=== PATIENT | female | born 1965 | race Caucasian/White ===

== ENCOUNTER 2017-02-08 06:45 | Day surgery (SDC) | payer OTHER ==
[2017-02-05 16:08] VITALS: BMI 21.9
--- NOTE | 2017-02-08 07:50 | HP ---
Admitting History and Physical - Primary Care Physician PCP: Stacia Zuñiga - Admission History of Present Illness: patient is a 51 y/o female with a past medical history of depression and hypelipidemia. She presents for ect, she has received ect in the past 2012 and 2014. patient reports she has is restarting ect because her current medication regimen is ineffective. Patient denies any recent hospitalizations or illnesses. She denies any past suicide attempts. Patient denies any suicidal or homicidal ideation, visual or auditory hallucinations. 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 History of Recent Travel: No Home Medications - Allergies Allergies/Adverse Reactions: Allergies Allergy/AdvReac Type Severity Reaction Status Date / Time No Known Allergies Allergy Verified 02/05/17 15:52 - Home Medications Home Medications: Ambulatory Orders Atorvastatin Calcium [Lipitor] 10 mg PO DAILY 02/05/17 Brexpiprazole [Rexulti] 2 mg PO DAILY 02/05/17 Lamotrigine [Lamictal] 200 mg PO DAILY 02/05/17 Multivitamins [Tab-A-Vit -] 1 tab PO DAILY 02/05/17 Vortioxetine Hydrobromide [Trintellix] 30 mg PO DAILY 02/05/17 Zolpidem Tartrate [Ambien] 10 mg PO HS 02/05/17 Loryna 3 mg-0.02 mg Tablet 1 tab PO DAILY 02/08/17 Family Disease History - Family Disease History Family Disease History: Other: Father (depression/anxiety, HLD) Review of Systems - Review of Systems Constitutional: reports: No Symptoms Eyes: reports: No Symptoms HENT: reports: No Symptoms Neck: reports: No Symptoms Cardiovascular: reports: No Symptoms Respiratory: reports: No Symptoms Gastrointestinal: reports: No Symptoms Genitourinary: reports: No Symptoms Musculoskeletal: reports: No Symptoms Integumentary: reports: No Symptoms Neurological: reports: No Symptoms Endocrine: reports: No Symptoms Hematology/Lymphatic: reports: No Symptoms Psychiatric: reports: Depression Physical Examination Constitutional: Yes: Well Nourished, No Distress, Calm, Thin Eyes: Yes: WNL, Conjunctiva Clear, EOM Intact HENT: Yes: WNL, Atraumatic, Normocephalic Neck: Yes: WNL, Supple, Trachea Midline Cardiovascular: Yes: WNL, Regular Rate and Rhythm, S1, S2 Respiratory: Yes: WNL, Regular, CTA Bilaterally Gastrointestinal: Yes: WNL, Normal Bowel Sounds, Soft ...Rectal Exam: Yes: Deferred Renal/: Yes: WNL Breast(s): Yes: WNL Musculoskeletal: Yes: WNL Extremities: Yes: WNL Edema: No Peripheral Pulses WNL: Yes Peripheral Pulses: Left Radial: 4+, Right Radial: 4+, Left Doralis Pedis: 3+, Right Dorsalis Pedis: 3+, Left Femoral: 3+, Right Femoral: 3+ Integumentary: Yes: WNL Neurological: Yes: WNL, Alert, Oriented ...Motor Strength: WNL Psychiatric: Yes: WNL, Alert Labs: CBC WBC 5.9 K/mm3 (4.0-10.8) 02/08/17 07:45 RBC 4.09 M/mm3 (3.60-5.2) 02/08/17 07:45 Hgb 12.4 GM/dl (10.7-15.3) 02/08/17 07:45 Hct 36.6 % (32.4-45.2) 02/08/17 07:45 MCV 89.5 fl (80-96) 02/08/17 07:45 MCH 30.2 pg (25.7-33.7) 02/08/17 07:45 MCHC 33.8 g/dl (32.0-36.0) 02/08/17 07:45 RDW 12.6 % (11.6-15.6) 02/08/17 07:45 Plt Count 310 K/MM3 (134-434) 02/08/17 07:45 MPV 6.9 fl (7.5-11.1) L 02/08/17 07:45 Neutrophils % 61.3 % (42.8-82.8) 02/08/17 07:45 Lymphocytes % 29.5 % (8-40) 02/08/17 07:45 Monocytes % 7.0 % (3.8-10.2) 02/08/17 07:45 Eosinophils % 1.5 % (0-4.5) 02/08/17 07:45 Basophils % 0.7 % (0-2.0) 02/08/17 07:45 Imaging - Results EKG: Image Reviewed, Other (sinus bradycardia no ischemic changes) Problem List - Problems (1) Chronic depression Code(s): F32.9 - MAJOR DEPRESSIVE DISORDER, SINGLE EPISODE, UNSPECIFIED Assessment/Plan pt is a 51 y/o female that presents for ect, she has received ect in the past and denies any adverse reaction to anesthesia labs and ekg reviewed pt is low risk for procedure informed consent, risks/benefits to be obtained by Dr Chandler
[2017-02-08 08:44] LABS: BASOPHIL 0.7 % (0-2.0); EOSINOPHIL 1.5 % (0-4.5); MCH 30.2 pg (25.7-33.7); MCHC 33.8 g/dl (32.0-36.0); MEAN CELL VOLUME 89.5 fl (80-96); MEAN PLT VOLUME 6.9 fl (7.5-11.1); NEUTROPHILS 61.3 % (42.8-82.8); PLATELET COUNT 310 K/MM3 (134-434); RDW 12.6 % (11.6-15.6); WHITE BLOOD COUNT 5.9 K/mm3 (4.0-10.8)
[2017-02-08] MEDS ORDERED: KETAMINE HCL 500 MG/10 ML VIAL ONE (08:55)
[2017-02-08 08:57] LABS: ALBUMIN 3.6 g/dl (3.5-5.0); ALK PHOS 38 U/L (32-92); ANION GAP 4 (8-16); BILIRUBIN,TOTAL 0.5 mg/dl (0.2-1.0); CALCIUM 8.9 mg/dl (8.4-10.2); CO2 27 mmol/L (22-28); CREATININE 0.8 mg/dl (0.6-1.3); GLUCOSE,RANDOM 88 mg/dl (74-106); SGOT/AST 25 U/L (10-42); SGPT/ALT 18 U/L (10-40); TOT PROT 6.3 g/dl (6.4-8.3)
[2017-02-08 10:47] VITALS: TEMP 98.2
[2017-02-08 10:48] VITALS: BP 102/72; PULSE 60
--- NOTE | 2017-02-09 09:23 | EKG ---
Test Reason : Blood Pressure : / mmHG Vent. Rate : 052 BPM Atrial Rate : 052 BPM P-R Int : 106 ms QRS Dur : 080 ms QT Int : 462 ms P-R-T Axes : 046 014 032 degrees QTc Int : 429 ms SINUS BRADYCARDIA WITH SHORT [place] NO PREVIOUS ECGS AVAILABLE Confirmed by MD ANTHONY, JANNIE ([id number]) on 02/09/2017 9:23:21 AM Referred By: Partha Chandler Confirmed By:JANNIE CRUZ MD
== END 2017-02-08 10:40 | disposition home or self-care (01) ==
LOC: FECT 06:45
PROVIDERS: ATTEND Psychiatry & Neurology Psychiatry
PROC: GZB4ZZZ Other Electroconvulsive Therapy (ICD-10-PCS; principal; 2017-02-08 08:15)
DX: F33.2 Major depressive disorder, recurrent severe without psychotic features (principal)
CPT/HCPCS: 36415; 80053; 84703; 85025; 90870; 93005; 94760

== ENCOUNTER 2017-02-10 05:47 | Day surgery (SDC) | payer OTHER ==
[2017-02-08 13:03] VITALS: BMI 21.9
[2017-02-10] MEDS ORDERED: LACTATED RINGERS SOLUTION 1,000 ML IV SCH (07:15)
[2017-02-10] MEDS ORDERED: KETAMINE HCL 500 MG/10 ML VIAL ONE (08:05)
[2017-02-10 09:07] VITALS: TEMP 98.1
[2017-02-10 09:32] VITALS: BP 124/66; PULSE 57
== END 2017-02-10 09:54 | disposition home or self-care (01) ==
LOC: FECT 05:47
PROVIDERS: ATTEND Psychiatry & Neurology Psychiatry
PROC: GZB4ZZZ Other Electroconvulsive Therapy (ICD-10-PCS; principal; 2017-02-10 08:15)
DX: F33.2 Major depressive disorder, recurrent severe without psychotic features (principal)
CPT/HCPCS: 90870; 94760

== ENCOUNTER 2017-02-12 05:45 | Day surgery (SDC) | payer OTHER ==
[2017-02-10 09:36] VITALS: BMI 21.9
[2017-02-12 06:44] VITALS: TEMP 97.8
[2017-02-12] MEDS ORDERED: KETAMINE HCL 500 MG/10 ML VIAL ONE (07:08)
[2017-02-12] MEDS ORDERED: KETOROLAC TROMETHAMINE 30 MG/1 ML VIAL ONE (07:09)
[2017-02-12] MEDS ORDERED: ACETAMINOPHEN 325 MG TABLET (FP) PO PRN (08:03)
[2017-02-12] MEDS ORDERED: ONDANSETRON 4 MG/2 ML VIAL IVPUSH PRN (08:03)
[2017-02-12] MEDS ORDERED: LACTATED RINGERS SOLUTION 1,000 ML IV SCH (08:15)
[2017-02-12 08:43] VITALS: BP 121/71; PULSE 61
== END 2017-02-12 08:40 | disposition home or self-care (01) ==
LOC: FECT 05:45
PROVIDERS: ATTEND Psychiatry & Neurology Psychiatry
PROC: GZB4ZZZ Other Electroconvulsive Therapy (ICD-10-PCS; principal; 2017-02-12 08:00)
DX: F33.2 Major depressive disorder, recurrent severe without psychotic features (principal)
CPT/HCPCS: 84703; 90870; 94760

== ENCOUNTER 2017-02-15 05:41 | Day surgery (SDC) | payer OTHER ==
[2017-02-10 09:39] VITALS: BMI 21.9
[2017-02-15 06:23] VITALS: TEMP 98
[2017-02-15] MEDS ORDERED: KETAMINE HCL 500 MG/10 ML VIAL ONE (07:10)
[2017-02-15] MEDS ORDERED: ONDANSETRON 4 MG/2 ML VIAL IVPUSH PRN (07:32)
[2017-02-15] MEDS ORDERED: oxyCODONE HCL 5 MG TABLET PO PRN (07:32)
[2017-02-15] MEDS ORDERED: LACTATED RINGERS SOLUTION 1,000 ML IV SCH (07:45)
[2017-02-15 08:28] VITALS: BP 129/73; PULSE 55
== END 2017-02-15 08:30 | disposition home or self-care (01) ==
LOC: FECT 05:41
PROVIDERS: ATTEND Psychiatry & Neurology Psychiatry
PROC: GZB4ZZZ Other Electroconvulsive Therapy (ICD-10-PCS; principal; 2017-02-15 07:30)
DX: F33.2 Major depressive disorder, recurrent severe without psychotic features (principal)
CPT/HCPCS: 90870; 94760

== ENCOUNTER 2017-02-17 05:39 | Day surgery (SDC) | payer OTHER ==
[2017-02-11 12:46] VITALS: BMI 21.9
[2017-02-17] MEDS ORDERED: KETAMINE HCL 500 MG/10 ML VIAL ONE (07:23)
[2017-02-17 08:35] VITALS: PULSE 53; TEMP 97.9
[2017-02-17 09:06] VITALS: BP 134/80
== END 2017-02-17 09:08 | disposition home or self-care (01) ==
LOC: FECT 05:39
PROVIDERS: ATTEND Psychiatry & Neurology Psychiatry
PROC: GZB4ZZZ Other Electroconvulsive Therapy (ICD-10-PCS; principal; 2017-02-17 07:30)
DX: F33.2 Major depressive disorder, recurrent severe without psychotic features (principal)
CPT/HCPCS: 84703; 90870; 94760

== ENCOUNTER 2017-02-22 05:41 | Day surgery (SDC) | payer OTHER ==
[2017-02-22 06:34] VITALS: TEMP 98
[2017-02-22] MEDS ORDERED: KETAMINE HCL 500 MG/10 ML VIAL ONE (07:19)
[2017-02-22 08:29] VITALS: BP 129/79; PULSE 54
[2017-02-22] MEDS ORDERED: ONDANSETRON 4 MG/2 ML VIAL IVPUSH PRN (11:22)
[2017-02-22] MEDS ORDERED: LACTATED RINGERS SOLUTION 1,000 ML IV SCH (11:30)
== END 2017-02-22 08:30 | disposition home or self-care (01) ==
LOC: FECT 05:41
PROVIDERS: ATTEND Psychiatry & Neurology Psychiatry
PROC: GZB4ZZZ Other Electroconvulsive Therapy (ICD-10-PCS; principal; 2017-02-22 08:00)
DX: F33.2 Major depressive disorder, recurrent severe without psychotic features (principal)
CPT/HCPCS: 84703; 90870; 94760

== ENCOUNTER 2017-02-24 05:41 | Day surgery (SDC) | payer OTHER ==
[2017-02-18 09:55] VITALS: BMI 21.9
[2017-02-24] MEDS ORDERED: KETAMINE HCL 500 MG/10 ML VIAL ONE (07:37)
[2017-02-24] MEDS ORDERED: ONDANSETRON 4 MG/2 ML VIAL IVPUSH PRN (08:52)
[2017-02-24] MEDS ORDERED: LACTATED RINGERS SOLUTION 1,000 ML IV SCH (09:00)
[2017-02-24 11:24] VITALS: BP 134/68; PULSE 57
[2017-02-24 11:28] VITALS: TEMP 97.8
== END 2017-02-24 09:00 | disposition home or self-care (01) ==
LOC: FECT 05:41
PROVIDERS: ATTEND Psychiatry & Neurology Psychiatry
PROC: GZB4ZZZ Other Electroconvulsive Therapy (ICD-10-PCS; principal; 2017-02-24 07:15)
DX: F33.2 Major depressive disorder, recurrent severe without psychotic features (principal)
CPT/HCPCS: 90870; 94760

== ENCOUNTER 2017-02-26 05:36 | Day surgery (SDC) | payer OTHER ==
[2017-02-18 11:17] VITALS: BMI 21.9
[2017-02-26 06:52] VITALS: TEMP 98.2
[2017-02-26] MEDS ORDERED: KETAMINE HCL 500 MG/10 ML VIAL ONE (07:40)
[2017-02-26 09:06] VITALS: PULSE 78
[2017-02-26 09:10] VITALS: BP 134/78
== END 2017-02-26 09:13 | disposition home or self-care (01) ==
LOC: FECT 05:36
PROVIDERS: ATTEND Psychiatry & Neurology Psychiatry
PROC: GZB4ZZZ Other Electroconvulsive Therapy (ICD-10-PCS; principal; 2017-02-26 07:15)
DX: F33.2 Major depressive disorder, recurrent severe without psychotic features (principal)
CPT/HCPCS: 84703; 90870; 94760

== ENCOUNTER 2017-03-01 05:38 | Day surgery (SDC) | payer OTHER ==
[2017-02-24 08:55] VITALS: BMI 21.9
[2017-03-01 06:58] VITALS: TEMP 98
[2017-03-01] MEDS ORDERED: KETAMINE HCL 500 MG/10 ML VIAL ONE (07:57)
[2017-03-01 09:41] VITALS: BP 122/78; PULSE 56
== END 2017-03-01 09:20 | disposition home or self-care (01) ==
LOC: FECT 05:38
PROVIDERS: ATTEND Psychiatry & Neurology Psychiatry
PROC: GZB4ZZZ Other Electroconvulsive Therapy (ICD-10-PCS; principal; 2017-03-01 07:15)
DX: F33.2 Major depressive disorder, recurrent severe without psychotic features (principal)
CPT/HCPCS: 90870; 94760

== ENCOUNTER 2017-03-03 05:37 | Day surgery (SDC) | payer OTHER ==
[2017-02-24 11:10] VITALS: BMI 21.9
[2017-03-03] MEDS ORDERED: KETAMINE HCL 500 MG/10 ML VIAL ONE (07:36)
[2017-03-03] MEDS ORDERED: ACETAMINOPHEN 325 MG TABLET (FP) PO PRN (07:40)
[2017-03-03] MEDS ORDERED: ONDANSETRON 4 MG/2 ML VIAL IVPUSH PRN (07:40)
[2017-03-03] MEDS ORDERED: LACTATED RINGERS SOLUTION 1,000 ML IV SCH (07:45)
[2017-03-03 08:58] VITALS: TEMP 98.4
[2017-03-03 09:21] VITALS: BP 124/74; PULSE 74
== END 2017-03-03 09:10 | disposition home or self-care (01) ==
LOC: FECT 05:37
PROVIDERS: ATTEND Psychiatry & Neurology Psychiatry
PROC: GZB4ZZZ Other Electroconvulsive Therapy (ICD-10-PCS; principal; 2017-03-03 07:00)
DX: F33.2 Major depressive disorder, recurrent severe without psychotic features (principal)
CPT/HCPCS: 84703; 90870; 94760

== ENCOUNTER 2017-03-05 05:39 | Day surgery (SDC) | payer OTHER ==
[2017-02-24 11:14] VITALS: BMI 21.9
[2017-03-05 06:23] VITALS: TEMP 98
[2017-03-05] MEDS ORDERED: KETAMINE HCL 500 MG/10 ML VIAL ONE (07:23)
[2017-03-05 09:29] VITALS: BP 130/72; PULSE 62
== END 2017-03-05 09:30 | disposition home or self-care (01) ==
LOC: FECT 05:39
PROVIDERS: ATTEND Psychiatry & Neurology Psychiatry
PROC: GZB4ZZZ Other Electroconvulsive Therapy (ICD-10-PCS; principal; 2017-03-05 07:00)
DX: F33.2 Major depressive disorder, recurrent severe without psychotic features (principal)
CPT/HCPCS: 90870; 94760

== ENCOUNTER 2017-03-08 05:43 | Day surgery (SDC) | payer OTHER ==
[2017-02-11 12:51] VITALS: BMI 21.9
[2017-03-08] MEDS ORDERED: KETAMINE HCL 500 MG/10 ML VIAL ONE (07:05)
[2017-03-08 08:12] VITALS: PULSE 58; TEMP 98.2
[2017-03-08 09:49] VITALS: BP 126/72
== END 2017-03-08 08:45 | disposition home or self-care (01) ==
LOC: FECT 05:43
PROVIDERS: ATTEND Psychiatry & Neurology Psychiatry
PROC: GZB4ZZZ Other Electroconvulsive Therapy (ICD-10-PCS; principal; 2017-03-08 07:15)
DX: F33.2 Major depressive disorder, recurrent severe without psychotic features (principal)
CPT/HCPCS: 84703; 90870; 94760

== ENCOUNTER 2017-03-10 05:41 | Day surgery (SDC) | payer OTHER ==
[2017-03-09 13:11] VITALS: BMI 21.9
[2017-03-10] MEDS ORDERED: KETAMINE HCL 500 MG/10 ML VIAL ONE (07:31)
[2017-03-10 08:20] VITALS: TEMP 98.2
--- NOTE | 2017-03-10 08:33 | HP ---
Admitting History and Physical - Admission History of Present Illness: patient is a 51 y/o female with a past medical history of depression and hyperlipidemia. patient presents for ect,her last ect was 03/08/17. She reports feeling well and reports an improvements in depressive symptoms since starting ect. she denies any changes in medications. She denies any recent idlenesses or hospitalizations. She denies nay suicidal or homicidal ideation, visual or auditory hallucinations. 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 History of Recent Travel: No Home Medications - Allergies Allergies/Adverse Reactions: Allergies Allergy/AdvReac Type Severity Reaction Status Date / Time No Known Allergies Allergy Verified 02/24/17 08:55 - Home Medications Home Medications: Ambulatory Orders Atorvastatin Calcium [Lipitor] 10 mg PO DAILY 02/05/17 Lamotrigine [Lamictal] 200 mg PO DAILY 02/05/17 Multivitamins [Multivit ([facility] Formulary)] 1 tab PO DAILY 02/05/17 Vortioxetine Hydrobromide [Trintellix] 30 mg PO DAILY 02/05/17 Zolpidem Tartrate [Ambien] 10 mg PO HS 02/05/17 Ethinyl Estradiol/Drospirenone [Loryna 3 mg-0.02 mg Tablet] 1 each PO DAILY Brexpiprazole [Rexulti] 1 mg PO DAILY 03/05/17 Family Disease History - Family Disease History Family Disease History: Other: Father (depression/anxiety, HLD) Review of Systems - Review of Systems Constitutional: reports: No Symptoms Eyes: reports: No Symptoms HENT: reports: No Symptoms Neck: reports: No Symptoms Cardiovascular: reports: No Symptoms Respiratory: reports: No Symptoms Gastrointestinal: reports: No Symptoms Genitourinary: reports: No Symptoms Musculoskeletal: reports: No Symptoms Integumentary: reports: No Symptoms Neurological: reports: No Symptoms Endocrine: reports: No Symptoms Hematology/Lymphatic: reports: No Symptoms Psychiatric: reports: No Symptoms Physical Examination Vital Signs: Vital Signs Temperature 98.2 F 03/10/17 08:10 Pulse Rate 58 L 03/10/17 08:10 Respiratory Rate 18 03/10/17 08:10 Blood Pressure 137/75 03/10/17 08:10 O2 Sat by Pulse Oximetry (%) 98 03/10/17 08:10 Constitutional: Yes: Well Nourished, No Distress, Calm Eyes: Yes: WNL, Conjunctiva Clear, EOM Intact HENT: Yes: WNL, Atraumatic, Normocephalic Neck: Yes: WNL, Supple, Trachea Midline Cardiovascular: Yes: WNL, Regular Rate and Rhythm, S1, S2 Respiratory: Yes: WNL, Regular, CTA Bilaterally Gastrointestinal: Yes: WNL, Normal Bowel Sounds, Soft ...Rectal Exam: Yes: Deferred Renal/: Yes: WNL Breast(s): Yes: WNL Musculoskeletal: Yes: WNL Extremities: Yes: WNL Edema: No Peripheral Pulses WNL: Yes Peripheral Pulses: Left Radial: 4+, Right Radial: 4+, Left Doralis Pedis: 3+, Right Dorsalis Pedis: 3+, Left Femoral: 3+ Integumentary: Yes: WNL Neurological: Yes: WNL, Alert, Oriented ...Motor Strength: WNL Psychiatric: Yes: WNL, Alert, Oriented Labs: reviewed 02/08 Imaging - Results EKG: Image Reviewed, Other (sinus familia) Assessment/Plan pt is a 51 y/o female, that presents for ect, labs and ekg reviewed pt is medically optimized for procedure
[2017-03-10 08:51] VITALS: BP 130/74; PULSE 56
[2017-03-10] MEDS ORDERED: ONDANSETRON 4 MG/2 ML VIAL IVPUSH PRN (09:21)
[2017-03-10] MEDS ORDERED: LACTATED RINGERS SOLUTION 1,000 ML IV SCH (09:30)
== END 2017-03-10 08:52 | disposition home or self-care (01) ==
LOC: FECT 05:41
PROVIDERS: ATTEND Psychiatry & Neurology Psychiatry
PROC: GZB4ZZZ Other Electroconvulsive Therapy (ICD-10-PCS; principal; 2017-03-10 08:45)
DX: F33.2 Major depressive disorder, recurrent severe without psychotic features (principal)
CPT/HCPCS: 90870; 94760

== ENCOUNTER 2017-03-12 05:43 | Day surgery (SDC) | payer OTHER ==
[2017-03-10 13:59] VITALS: BMI 21.9
[2017-03-12] MEDS ORDERED: KETAMINE HCL 500 MG/10 ML VIAL ONE (07:15)
[2017-03-12] MEDS ORDERED: LACTATED RINGERS SOLUTION 1,000 ML IV SCH (07:30)
[2017-03-12 08:32] VITALS: TEMP 98.1
[2017-03-12 09:50] VITALS: BP 124/70; PULSE 54
== END 2017-03-12 09:15 | disposition home or self-care (01) ==
LOC: FECT 05:43
PROVIDERS: ATTEND Psychiatry & Neurology Psychiatry
PROC: GZB4ZZZ Other Electroconvulsive Therapy (ICD-10-PCS; principal; 2017-03-12 08:00)
DX: F33.2 Major depressive disorder, recurrent severe without psychotic features (principal)
CPT/HCPCS: 84703; 90870; 94760

== ENCOUNTER 2017-03-15 05:39 | Day surgery (SDC) | payer OTHER ==
[2017-03-10 14:30] VITALS: BMI 21.9
[2017-03-15] MEDS ORDERED: KETAMINE HCL 500 MG/10 ML VIAL ONE (06:55)
[2017-03-15 08:15] VITALS: TEMP 97.3
[2017-03-15 08:34] VITALS: BP 123/78; PULSE 60
== END 2017-03-15 08:56 | disposition home or self-care (01) ==
LOC: FECT 05:39
PROVIDERS: ATTEND Psychiatry & Neurology Psychiatry
PROC: GZB4ZZZ Other Electroconvulsive Therapy (ICD-10-PCS; principal; 2017-03-15 07:15)
DX: F33.2 Major depressive disorder, recurrent severe without psychotic features (principal)
CPT/HCPCS: 90870; 94760

== ENCOUNTER 2017-03-17 06:44 | Day surgery (SDC) | payer OTHER ==
[2017-03-15 08:38] VITALS: BMI 21.9
[2017-03-17] MEDS ORDERED: KETAMINE HCL 500 MG/10 ML VIAL ONE (07:13)
[2017-03-17 08:08] VITALS: PULSE 56; TEMP 97.8
[2017-03-17] MEDS ORDERED: ONDANSETRON 4 MG/2 ML VIAL IVPUSH PRN (08:31)
[2017-03-17] MEDS ORDERED: LACTATED RINGERS SOLUTION 1,000 ML IV SCH (08:45)
[2017-03-17 08:51] VITALS: BP 118/78
== END 2017-03-17 08:54 | disposition home or self-care (01) ==
LOC: FECT 06:44
PROVIDERS: ATTEND Psychiatry & Neurology Psychiatry
PROC: GZB4ZZZ Other Electroconvulsive Therapy (ICD-10-PCS; principal; 2017-03-17 08:00)
DX: F33.2 Major depressive disorder, recurrent severe without psychotic features (principal)
CPT/HCPCS: 84703; 90870; 94760

== ENCOUNTER 2017-03-19 05:39 | Day surgery (SDC) | payer OTHER ==
[2017-03-15 08:41] VITALS: BMI 21.9
[2017-03-19] MEDS ORDERED: KETAMINE HCL 500 MG/10 ML VIAL ONE (07:04)
[2017-03-19 08:17] VITALS: PULSE 56; TEMP 98.5
[2017-03-19 09:30] VITALS: BP 140/72
== END 2017-03-19 09:31 | disposition home or self-care (01) ==
LOC: FECT 05:39
PROVIDERS: ATTEND Psychiatry & Neurology Psychiatry
PROC: GZB4ZZZ Other Electroconvulsive Therapy (ICD-10-PCS; principal; 2017-03-19 08:00)
DX: F33.2 Major depressive disorder, recurrent severe without psychotic features (principal)
CPT/HCPCS: 90870; 94760

== ENCOUNTER 2017-03-22 05:39 | Day surgery (SDC) | payer OTHER ==
[2017-03-19 10:44] VITALS: BMI 21.9
[2017-03-22 06:24] VITALS: TEMP 97.8
[2017-03-22] MEDS ORDERED: KETAMINE HCL 500 MG/10 ML VIAL ONE (07:08)
[2017-03-22 09:54] VITALS: BP 134/84; PULSE 59
[2017-03-22] MEDS ORDERED: ONDANSETRON 4 MG/2 ML VIAL IVPUSH PRN (12:24)
[2017-03-22] MEDS ORDERED: LACTATED RINGERS SOLUTION 1,000 ML IV SCH (12:30)
== END 2017-03-22 09:40 | disposition home or self-care (01) ==
LOC: FECT 05:39
PROVIDERS: ATTEND Psychiatry & Neurology Psychiatry
PROC: GZB4ZZZ Other Electroconvulsive Therapy (ICD-10-PCS; principal; 2017-03-22 07:45)
DX: F33.2 Major depressive disorder, recurrent severe without psychotic features (principal)
CPT/HCPCS: 84703; 90870; 94760

== ENCOUNTER 2017-03-24 05:40 | Day surgery (SDC) | payer OTHER ==
[2017-03-19 13:36] VITALS: BMI 21.9
[2017-03-24] MEDS ORDERED: KETAMINE HCL 500 MG/10 ML VIAL ONE (07:09)
[2017-03-24 08:08] VITALS: TEMP 98.2
[2017-03-24] MEDS ORDERED: ACETAMINOPHEN 325 MG TABLET (FP) PO PRN (08:14)
[2017-03-24] MEDS ORDERED: ONDANSETRON 4 MG/2 ML VIAL IVPUSH PRN (08:14)
[2017-03-24 08:43] VITALS: BP 128/72; PULSE 62
== END 2017-03-24 08:44 | disposition home or self-care (01) ==
LOC: FECT 05:40
PROVIDERS: ATTEND Psychiatry & Neurology Psychiatry
PROC: GZB4ZZZ Other Electroconvulsive Therapy (ICD-10-PCS; principal; 2017-03-24 08:15)
DX: F33.2 Major depressive disorder, recurrent severe without psychotic features (principal)
CPT/HCPCS: 90870; 94760

== ENCOUNTER 2017-03-26 05:45 | Day surgery (SDC) | payer OTHER ==
[2017-03-19 13:39] VITALS: BMI 21.9
[2017-03-26 06:28] VITALS: TEMP 97.6
[2017-03-26] MEDS ORDERED: KETAMINE HCL 500 MG/10 ML VIAL ONE (07:00)
[2017-03-26 08:42] VITALS: BP 128/74; PULSE 64
== END 2017-03-26 08:43 | disposition home or self-care (01) ==
LOC: FECT 05:45
PROVIDERS: ATTEND Psychiatry & Neurology Psychiatry
PROC: GZB4ZZZ Other Electroconvulsive Therapy (ICD-10-PCS; principal; 2017-03-26 08:15)
DX: F33.2 Major depressive disorder, recurrent severe without psychotic features (principal)
CPT/HCPCS: 84703; 90870; 94760

== ENCOUNTER 2017-08-06 05:45 | Day surgery (SDC) | payer OTHER ==
[2017-08-06 07:57] VITALS: BMI 22.8
[2017-08-06 08:02] LABS: HEMOGLOBIN 12.6 GM/dl (10.7-15.3); MCH 30.1 pg (25.7-33.7); MEAN CELL VOLUME 88.6 fl (80-96); MEAN PLT VOLUME 7.2 fl (7.5-11.1); PLATELET COUNT 334 K/MM3 (134-434); RBC 4.17 M/mm3 (3.60-5.2); RDW 12.6 % (11.6-15.6); WHITE BLOOD COUNT 4.8 K/mm3 (4.0-10.8)
--- NOTE | 2017-08-06 08:22 | HP ---
Admitting History and Physical - Admission History of Present Illness: Patient is a 52 y/o female with a past medical history of hyperlipidemia and depression. Patient presents for ect, she has received ECT in the past, her last ECT was 04/11. Patient reports self discontinuing ECT. However, within the past month she developed feelings of depression. patient denies any suicidal or homicidal ideation, visual or auditory hallucinations. She reports compliance with prescribed medications. 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 History of Recent Travel: No Home Medications - Allergies Allergies/Adverse Reactions: Allergies Allergy/AdvReac Type Severity Reaction Status Date / Time No Known Allergies Allergy Verified 03/15/17 08:39 - Home Medications Home Medications: Ambulatory Orders Atorvastatin Calcium [Lipitor] 10 mg PO DAILY 02/05/17 Lamotrigine [Lamictal] 200 mg PO DAILY 02/05/17 Multivitamins [Multivit ([facility] Formulary)] 1 tab PO DAILY 02/05/17 Vortioxetine Hydrobromide [Trintellix] 20 mg PO DAILY 02/05/17 Zolpidem Tartrate [Ambien] 10 mg PO HS 02/05/17 Ethinyl Estradiol/Drospirenone [Loryna 3 mg-0.02 mg Tablet] 1 each PO DAILY Brexpiprazole [Rexulti] 1 mg PO DAILY 03/05/17 Family Disease History - Family Disease History Family Disease History: Other: Father (depression/anxiety, HLD) Review of Systems - Review of Systems Constitutional: reports: No Symptoms Eyes: reports: No Symptoms HENT: reports: No Symptoms Neck: reports: No Symptoms Cardiovascular: reports: No Symptoms Respiratory: reports: No Symptoms Gastrointestinal: reports: No Symptoms Genitourinary: reports: No Symptoms Musculoskeletal: reports: No Symptoms Integumentary: reports: No Symptoms Neurological: reports: No Symptoms Endocrine: reports: No Symptoms Hematology/Lymphatic: reports: No Symptoms Psychiatric: reports: Depression Physical Examination Vital Signs: Vital Signs Temperature 98.6 F 08/06/17 07:48 Pulse Rate 56 L 08/06/17 07:48 Respiratory Rate 18 08/06/17 07:48 Blood Pressure 112/70 08/06/17 07:48 O2 Sat by Pulse Oximetry (%) Constitutional: Yes: Well Nourished, No Distress, Calm Eyes: Yes: WNL, Conjunctiva Clear, EOM Intact HENT: Yes: WNL, Atraumatic, Normocephalic Neck: Yes: WNL, Supple, Trachea Midline Cardiovascular: Yes: WNL, Regular Rate and Rhythm, S1, S2 Respiratory: Yes: WNL, Regular, CTA Bilaterally Gastrointestinal: Yes: WNL, Normal Bowel Sounds, Soft ...Rectal Exam: Yes: Deferred Renal/: Yes: WNL Breast(s): Yes: WNL Musculoskeletal: Yes: WNL Extremities: Yes: WNL Edema: No Peripheral Pulses WNL: Yes Peripheral Pulses: Left Radial: 4+, Right Radial: 4+, Left Doralis Pedis: 3+, Right Dorsalis Pedis: 3+, Left Femoral: 3+, Right Femoral: 3+ Integumentary: Yes: WNL Neurological: Yes: WNL, Alert, Oriented ...Motor Strength: WNL Psychiatric: Yes: WNL, Alert, Oriented Labs: CBC, BMP 08/06/17 07:15 Imaging - Results EKG: Image Reviewed Assessment/Plan Patient is a 52 y/o female that presents for ect, labs and ekg reviewed. patient is medically optimized for procedure informed consent, risks/benefits to be obtained by Dr Chandler
[2017-08-06 08:56] LABS: ALBUMIN 3.7 g/dl (3.5-5.0); ALK PHOS 40 U/L (32-92); BILIRUBIN,TOTAL 0.5 mg/dl (0.2-1.0); BLOOD UREA NITROGEN 12 mg/dl (7-18); GLUCOSE,RANDOM 92 mg/dl (74-106); SGOT/AST 26 U/L (10-42); SGPT/ALT 17 U/L (10-40); TOT PROT 6.8 g/dl (6.4-8.3)
[2017-08-06 09:34] LABS: SODIUM 132 mmol/L (136-145)
[2017-08-06 09:35] LABS: ANION GAP 9 (8-16); CALCIUM 9.2 mg/dl (8.4-10.2); CHLORIDE 98 mmol/L (98-107); CO2 25 mmol/L (22-28); POTASSIUM 4.3 mmol/L (3.5-5.1)
--- NOTE | 2017-08-06 10:13 | EKG ---
Test Reason : Blood Pressure : / mmHG Vent. Rate : 051 BPM Atrial Rate : 051 BPM P-R Int : 110 ms QRS Dur : 072 ms QT Int : 462 ms P-R-T Axes : 048 010 035 degrees QTc Int : 425 ms SINUS BRADYCARDIA WITH SHORT AR SEPTAL INFARCT , AGE UNDETERMINED ABNORMAL ECG Confirmed by MD TOM, KAMLESH ([id number]) on 08/06/2017 10:12:33 AM Referred By: Partha Chandler Confirmed By:KAMLESH SANTOS MD
[2017-08-06 10:30] VITALS: TEMP 98
[2017-08-06 11:09] VITALS: BP 132/76; PULSE 62
== END 2017-08-06 11:11 | disposition home or self-care (01) ==
LOC: FECT 05:45
PROVIDERS: ATTEND Psychiatry & Neurology Psychiatry
PROC: GZB4ZZZ Other Electroconvulsive Therapy (ICD-10-PCS; principal; 2017-08-06 08:45)
DX: F33.2 Major depressive disorder, recurrent severe without psychotic features (principal)
CPT/HCPCS: 36415; 80053; 84703; 85027; 90870; 93005; 94760

== ENCOUNTER 2017-08-13 05:44 | Day surgery (SDC) | payer OTHER ==
[2017-08-09 14:33] VITALS: BMI 22.8
[2017-08-13 06:30] VITALS: TEMP 98.2
[2017-08-13] MEDS ORDERED: KETAMINE HCL 500 MG/10 ML VIAL ONE (07:30)
[2017-08-13 08:55] VITALS: BP 136/70; PULSE 66
== END 2017-08-13 09:05 | disposition home or self-care (01) ==
LOC: FECT 05:44
PROVIDERS: ATTEND Psychiatry & Neurology Psychiatry
PROC: GZB4ZZZ Other Electroconvulsive Therapy (ICD-10-PCS; principal; 2017-08-13 07:15)
DX: F33.2 Major depressive disorder, recurrent severe without psychotic features (principal)
CPT/HCPCS: 84703; 90870; 94760

== ENCOUNTER 2017-08-20 05:43 | Day surgery (SDC) | payer OTHER ==
[2017-08-16 16:08] VITALS: BMI 22.8
[2017-08-20 06:29] VITALS: TEMP 98
[2017-08-20] MEDS ORDERED: KETAMINE HCL 500 MG/10 ML VIAL ONE (07:04)
[2017-08-20 08:23] VITALS: BP 143/61; PULSE 78
== END 2017-08-20 08:42 | disposition home or self-care (01) ==
LOC: FECT 05:43
PROVIDERS: ATTEND Psychiatry & Neurology Psychiatry
PROC: GZB4ZZZ Other Electroconvulsive Therapy (ICD-10-PCS; principal; 2017-08-20 08:15)
DX: F33.2 Major depressive disorder, recurrent severe without psychotic features (principal)
CPT/HCPCS: 84703; 90870; 94760

== ENCOUNTER 2017-08-27 05:45 | Day surgery (SDC) | payer OTHER ==
[2017-08-23 08:03] VITALS: BMI 22.8
[2017-08-27] MEDS ORDERED: KETAMINE HCL 500 MG/10 ML VIAL ONE (07:09)
[2017-08-27 08:32] VITALS: PULSE 56; TEMP 98.2
[2017-08-27 08:48] VITALS: BP 128/74
== END 2017-08-27 08:50 | disposition home or self-care (01) ==
LOC: FECT 05:45
PROVIDERS: ATTEND Psychiatry & Neurology Psychiatry
PROC: GZB4ZZZ Other Electroconvulsive Therapy (ICD-10-PCS; principal; 2017-08-27 08:30)
DX: F33.2 Major depressive disorder, recurrent severe without psychotic features (principal)
CPT/HCPCS: 84703; 90870; 94760

== ENCOUNTER 2017-09-03 05:49 | Day surgery (SDC) | payer OTHER ==
[2017-08-31 10:00] VITALS: BMI 22.8
[2017-09-03] MEDS ORDERED: KETAMINE HCL 500 MG/10 ML VIAL ONE (07:32)
[2017-09-03 08:38] VITALS: TEMP 98.2
[2017-09-03 09:06] VITALS: BP 126/78; PULSE 66
== END 2017-09-03 09:09 | disposition home or self-care (01) ==
LOC: FECT 05:49
PROVIDERS: ATTEND Psychiatry & Neurology Psychiatry
PROC: GZB4ZZZ Other Electroconvulsive Therapy (ICD-10-PCS; principal; 2017-09-03 08:00)
DX: F33.2 Major depressive disorder, recurrent severe without psychotic features (principal)
CPT/HCPCS: 84703; 90870; 94760

== ENCOUNTER 2017-09-10 05:43 | Day surgery (SDC) | payer OTHER ==
[2017-09-03 11:11] VITALS: BMI 22.8
--- NOTE | 2017-09-10 07:35 | HP ---
Admitting History and Physical - Admission History of Present Illness: patient is a 52 y/o female with a past medical history of hyperlipidemia and depression that presents for ect. Her last ect was 09/03/17. patient reports feeling well and reports no significant changes in depressive symptoms since starting ect. She denies any recent illnesses or hospitalizations. patient denies any suicidal or homicidal ideation, visual or auditory hallucinations. 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 History of Recent Travel: No Home Medications - Allergies Allergies/Adverse Reactions: Allergies Allergy/AdvReac Type Severity Reaction Status Date / Time No Known Allergies Allergy Verified 03/15/17 08:39 - Home Medications Home Medications: Ambulatory Orders Atorvastatin Calcium [Lipitor] 10 mg PO DAILY 02/05/17 Lamotrigine [Lamictal] 200 mg PO DAILY 02/05/17 Multivitamins [Multivit ([facility] Formulary)] 1 tab PO DAILY 02/05/17 Vortioxetine Hydrobromide [Trintellix] 20 mg PO DAILY 02/05/17 Zolpidem Tartrate [Ambien] 10 mg PO HS 02/05/17 Ethinyl Estradiol/Drospirenone [Loryna 3 mg-0.02 mg Tablet] 1 each PO DAILY Family Disease History - Family Disease History Family Disease History: Other: Father (depression/anxiety, HLD) Review of Systems - Review of Systems Constitutional: reports: No Symptoms Eyes: reports: No Symptoms HENT: reports: No Symptoms Neck: reports: No Symptoms Cardiovascular: reports: No Symptoms Respiratory: reports: No Symptoms Gastrointestinal: reports: No Symptoms Genitourinary: reports: No Symptoms Musculoskeletal: reports: No Symptoms Integumentary: reports: No Symptoms Neurological: reports: No Symptoms Endocrine: reports: No Symptoms Hematology/Lymphatic: reports: No Symptoms Psychiatric: reports: No Symptoms Physical Examination Constitutional: Yes: Well Nourished, No Distress, Calm Eyes: Yes: WNL, Conjunctiva Clear, EOM Intact HENT: Yes: WNL, Atraumatic, Normocephalic Neck: Yes: WNL, Supple, Trachea Midline Cardiovascular: Yes: WNL, Regular Rate and Rhythm, S1, S2 Respiratory: Yes: WNL, Regular, CTA Bilaterally Gastrointestinal: Yes: WNL, Normal Bowel Sounds, Soft ...Rectal Exam: Yes: Deferred Renal/: Yes: WNL Breast(s): Yes: WNL Musculoskeletal: Yes: WNL Extremities: Yes: WNL Edema: No Peripheral Pulses WNL: Yes Peripheral Pulses: Left Radial: 4+, Right Radial: 4+, Left Doralis Pedis: 3+, Right Dorsalis Pedis: 3+, Left Femoral: 3+, Right Femoral: 3+ Integumentary: Yes: WNL Neurological: Yes: WNL, Alert, Oriented ...Motor Strength: WNL Psychiatric: Yes: WNL, Alert, Oriented Labs: reviewed 08/12 Imaging - Results EKG: Other (nsr) Assessment/Plan patient is a 52 y/o female that presents for ect, labs and ekg reviewed patient is medically optimized for procedure informed consent, risks/benefits to be obtained by Dr Chandler
[2017-09-10] MEDS ORDERED: KETAMINE HCL 500 MG/10 ML VIAL ONE (08:22)
[2017-09-10 09:53] VITALS: TEMP 98
[2017-09-10 10:13] VITALS: BP 128/78; PULSE 61
== END 2017-09-10 10:15 | disposition home or self-care (01) ==
LOC: FECT 05:43
PROVIDERS: ATTEND Psychiatry & Neurology Psychiatry
PROC: GZB4ZZZ Other Electroconvulsive Therapy (ICD-10-PCS; principal; 2017-09-10 08:00)
DX: F33.2 Major depressive disorder, recurrent severe without psychotic features (principal)
CPT/HCPCS: 84703; 90870; 94760

== ENCOUNTER 2017-09-13 05:52 | Day surgery (SDC) | payer OTHER ==
[2017-09-10 13:33] VITALS: BMI 22.8
[2017-09-13] MEDS ORDERED: KETAMINE HCL 500 MG/10 ML VIAL ONE (07:15)
[2017-09-13] MEDS ORDERED: ONDANSETRON 4 MG/2 ML VIAL IVPUSH PRN (09:58)
[2017-09-13] MEDS ORDERED: oxyCODONE HCL 5 MG TABLET PO PRN (09:58)
[2017-09-13] MEDS ORDERED: LACTATED RINGERS SOLUTION 1,000 ML IV SCH (10:00)
[2017-09-13 10:54] VITALS: TEMP 98
[2017-09-13 10:56] VITALS: BP 126/72; PULSE 54
== END 2017-09-13 09:15 | disposition home or self-care (01) ==
LOC: FECT 05:52
PROVIDERS: ATTEND Psychiatry & Neurology Psychiatry
PROC: GZB4ZZZ Other Electroconvulsive Therapy (ICD-10-PCS; principal; 2017-09-13 08:15)
DX: F33.2 Major depressive disorder, recurrent severe without psychotic features (principal)

== ENCOUNTER 2017-09-15 05:42 | Day surgery (SDC) | payer OTHER ==
[2017-09-10 13:38] VITALS: BMI 22.8
[2017-09-15] MEDS ORDERED: KETAMINE HCL 500 MG/10 ML VIAL ONE (07:07)
[2017-09-15 08:25] VITALS: TEMP 98.2
[2017-09-15 09:13] VITALS: BP 132/59; PULSE 54
== END 2017-09-15 09:15 | disposition home or self-care (01) ==
LOC: FECT 05:42
PROVIDERS: ATTEND Psychiatry & Neurology Psychiatry
PROC: GZB4ZZZ Other Electroconvulsive Therapy (ICD-10-PCS; principal; 2017-09-15 07:15)
DX: F33.2 Major depressive disorder, recurrent severe without psychotic features (principal)
CPT/HCPCS: 84703

== ENCOUNTER 2017-10-15 05:47 | Day surgery (SDC) | payer OTHER ==
[2017-10-15 07:24] VITALS: BMI 22.8
--- NOTE | 2017-10-15 07:58 | HP ---
Admitting History and Physical - Admission History of Present Illness: patient is a 52 y/o female with a past medical history of hyperlipidemia and depression. Patient presents for ect, her last ect was 09/17/17. Patient reports a slight improvement in depressive symptoms since starting ect. She denies any recent illnesses or hospitalizations. She denies any changes in medications. patient denies any suicidal or homicidal ideation, visual or auditory hallucinations. 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 History of Recent Travel: No Home Medications - Allergies Allergies/Adverse Reactions: Allergies Allergy/AdvReac Type Severity Reaction Status Date / Time No Known Allergies Allergy Verified 09/10/17 13:54 - Home Medications Home Medications: Ambulatory Orders Atorvastatin Calcium [Lipitor] 10 mg PO DAILY 02/05/17 Lamotrigine [Lamictal] 200 mg PO DAILY 02/05/17 Multivitamins [Multivit ([facility] Formulary)] 1 tab PO DAILY 02/05/17 Vortioxetine Hydrobromide [Trintellix] 20 mg PO DAILY 02/05/17 Zolpidem Tartrate [Ambien] 10 mg PO HS 02/05/17 Ethinyl Estradiol/Drospirenone [Loryna 3 mg-0.02 mg Tablet] 1 each PO DAILY Family Disease History - Family Disease History Family Disease History: Other: Father (depression/anxiety, HLD) Review of Systems - Review of Systems Constitutional: reports: No Symptoms Eyes: reports: No Symptoms HENT: reports: No Symptoms Neck: reports: No Symptoms Cardiovascular: reports: No Symptoms Respiratory: reports: No Symptoms Gastrointestinal: reports: No Symptoms Genitourinary: reports: No Symptoms Breasts: reports: No Symptoms Reported Musculoskeletal: reports: No Symptoms Integumentary: reports: No Symptoms Neurological: reports: No Symptoms Endocrine: reports: No Symptoms Hematology/Lymphatic: reports: No Symptoms Psychiatric: reports: No Symptoms Physical Examination Vital Signs: Vital Signs Temperature 98.0 F 10/15/17 07:12 Pulse Rate 57 L 10/15/17 07:12 Respiratory Rate 18 10/15/17 07:12 Blood Pressure 124/66 10/15/17 07:12 O2 Sat by Pulse Oximetry (%) 100 10/15/17 07:12 Constitutional: Yes: Well Nourished, No Distress, Calm Eyes: Yes: WNL, Conjunctiva Clear, EOM Intact HENT: Yes: WNL, Atraumatic, Normocephalic Neck: Yes: WNL, Supple, Trachea Midline Cardiovascular: Yes: WNL, Regular Rate and Rhythm, S1, S2 Respiratory: Yes: WNL, Regular, CTA Bilaterally Gastrointestinal: Yes: WNL, Normal Bowel Sounds, Soft ...Rectal Exam: Yes: Deferred Renal/: Yes: WNL Breast(s): Yes: WNL Musculoskeletal: Yes: WNL Extremities: Yes: WNL Edema: No Peripheral Pulses WNL: Yes Peripheral Pulses: Left Radial: 4+, Right Radial: 4+, Left Doralis Pedis: 3+, Right Dorsalis Pedis: 3+, Left Femoral: 3+, Right Femoral: 3+ Integumentary: Yes: WNL Neurological: Yes: WNL, Alert, Oriented ...Motor Strength: WNL Psychiatric: Yes: WNL, Alert, Oriented Labs: reviewed 08/12 Imaging - Results EKG: Image Reviewed, Other (nsr) Assessment/Plan patient is a 52 y/o female that presents for ect, labs and ekg reviewed patient is medically optimized for procedure informed consent, risks/benefits to be obtained by Dr Chandler
[2017-10-15] MEDS ORDERED: KETAMINE HCL 500 MG/10 ML VIAL ONE (08:04)
[2017-10-15] MEDS ORDERED: ACETAMINOPHEN 325 MG TABLET (FP) PO PRN (08:37)
[2017-10-15] MEDS ORDERED: ONDANSETRON 4 MG/2 ML VIAL IVPUSH PRN (08:37)
[2017-10-15] MEDS ORDERED: PROMETHAZINE HCL 25 MG/1 ML VIAL IVPB PRN (08:37)
[2017-10-15 09:33] VITALS: TEMP 98.6
[2017-10-15 09:35] VITALS: BP 139/72; PULSE 61
== END 2017-10-15 09:45 | disposition home or self-care (01) ==
LOC: FECT 05:47
PROVIDERS: ATTEND Psychiatry & Neurology Psychiatry
PROC: GZB4ZZZ Other Electroconvulsive Therapy (ICD-10-PCS; principal; 2017-10-15 07:30)
DX: F33.2 Major depressive disorder, recurrent severe without psychotic features (principal)
CPT/HCPCS: 84703; 90870; 94760

== ENCOUNTER 2017-10-22 05:42 | Day surgery (SDC) | payer OTHER ==
[2017-10-12 17:07] VITALS: BMI 22.8
[2017-10-22] MEDS ORDERED: KETAMINE HCL 500 MG/10 ML VIAL ONE (07:07)
[2017-10-22] MEDS ORDERED: ONDANSETRON 4 MG/2 ML VIAL IVPUSH PRN (07:15)
[2017-10-22] MEDS ORDERED: oxyCODONE HCL 5 MG TABLET PO PRN ×2 (07:15)
[2017-10-22 08:52] VITALS: TEMP 98.1
[2017-10-22 08:54] VITALS: BP 135/81; PULSE 66
== END 2017-10-22 09:25 | disposition home or self-care (01) ==
LOC: FECT 05:42
PROVIDERS: ATTEND Psychiatry & Neurology Psychiatry
PROC: GZB4ZZZ Other Electroconvulsive Therapy (ICD-10-PCS; principal; 2017-10-22 07:15)
DX: F33.2 Major depressive disorder, recurrent severe without psychotic features (principal)
CPT/HCPCS: 84703; 90870; 94760

== ENCOUNTER → 2017-10-25 | Day surgery (SDC) | payer OTHER ==
[~2017-10-25] MED LIST: KETAMINE HCL 500 MG/10 ML VIAL ONE
[2017-10-25 06:56] VITALS: TEMP 97.8; BMI 22.8
[2017-10-25 08:18] VITALS: PULSE 58
[2017-10-25 08:45] VITALS: BP 130/74
== END | disposition home or self-care (01) ==
LOC: FECT 05:44
PROVIDERS: ATTEND Psychiatry & Neurology Psychiatry
PROC: GZB4ZZZ Other Electroconvulsive Therapy (ICD-10-PCS; principal; 2017-10-25 07:00)
DX: F33.2 Major depressive disorder, recurrent severe without psychotic features (principal)
CPT/HCPCS: 90870; 94760

== ENCOUNTER 2017-10-29 05:45 | Day surgery (SDC) | payer OTHER ==
[2017-10-29 06:41] VITALS: BMI 23.3
[2017-10-29] MEDS ORDERED: ONDANSETRON 4 MG/2 ML VIAL IVPUSH PRN (07:39)
[2017-10-29] MEDS ORDERED: oxyCODONE HCL 5 MG TABLET PO PRN ×2 (07:39)
[2017-10-29 08:40] VITALS: TEMP 98.5
[2017-10-29 09:11] VITALS: BP 114/78; PULSE 58
== END 2017-10-29 09:30 | disposition home or self-care (01) ==
LOC: FECT 05:45
PROVIDERS: ATTEND Psychiatry & Neurology Psychiatry
PROC: GZB4ZZZ Other Electroconvulsive Therapy (ICD-10-PCS; principal; 2017-10-29 07:00)
DX: F33.2 Major depressive disorder, recurrent severe without psychotic features (principal)
CPT/HCPCS: 84703; 90870; 94760

== ENCOUNTER 2017-11-17 05:51 | Day surgery (SDC) | payer OTHER ==
--- NOTE | 2017-11-17 07:38 | HP ---
Admitting History and Physical - Admission History of Present Illness: Patient is a 52 y/o female with a past medical history of depression, anxiety, and hyperlipidemia. patient presents for ect, her last ect was 11/05/17. Patient reports a significant improvement in depressive symptoms since starting ect. She reports frequent episodes of anxiety and is taking klonopin with relief. Patient denies any suicidal or homicidal ideation, visual or auditory hallucinations. 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 History of Recent Travel: No Home Medications - Allergies Allergies/Adverse Reactions: Allergies Allergy/AdvReac Type Severity Reaction Status Date / Time No Known Allergies Allergy Verified 09/10/17 13:54 - Home Medications Home Medications: Ambulatory Orders Atorvastatin Calcium [Lipitor] 10 mg PO DAILY 02/05/17 Lamotrigine [Lamictal] 200 mg PO DAILY 02/05/17 Multivitamins [Multivit ([facility] Formulary)] 1 tab PO DAILY 02/05/17 Vortioxetine Hydrobromide [Trintellix] 20 mg PO DAILY 02/05/17 Zolpidem Tartrate [Ambien] 10 mg PO HS 02/05/17 Ethinyl Estradiol/Drospirenone [Loryna 3 mg-0.02 mg Tablet] 1 each PO DAILY clonazePAM [Klonopin -] 0.25 mg PO DAILY PRN 10/25/17 Family Disease History - Family Disease History Family Disease History: Other: Father (depression/anxiety, HLD) Review of Systems - Review of Systems Constitutional: reports: No Symptoms Eyes: reports: No Symptoms HENT: reports: No Symptoms Neck: reports: No Symptoms Cardiovascular: reports: No Symptoms Respiratory: reports: No Symptoms Gastrointestinal: reports: No Symptoms Genitourinary: reports: No Symptoms Musculoskeletal: reports: No Symptoms Integumentary: reports: No Symptoms Neurological: reports: No Symptoms Endocrine: reports: No Symptoms Hematology/Lymphatic: reports: No Symptoms Psychiatric: reports: Anxiety Physical Examination Constitutional: Yes: Well Nourished, No Distress, Calm Eyes: Yes: WNL, Conjunctiva Clear, EOM Intact HENT: Yes: WNL, Atraumatic, Normocephalic Neck: Yes: WNL, Supple, Trachea Midline Cardiovascular: Yes: WNL, Regular Rate and Rhythm, S1, S2 Respiratory: Yes: WNL, Regular, CTA Bilaterally Gastrointestinal: Yes: WNL, Normal Bowel Sounds, Soft ...Rectal Exam: Yes: Deferred Renal/: Yes: WNL Musculoskeletal: Yes: WNL Extremities: Yes: WNL Edema: No Peripheral Pulses WNL: Yes Peripheral Pulses: Left Radial: 4+, Right Radial: 4+, Left Doralis Pedis: 3+, Right Dorsalis Pedis: 3+, Left Femoral: 3+, Right Femoral: 3+ Integumentary: Yes: WNL Neurological: Yes: WNL, Alert, Oriented ...Motor Strength: WNL Psychiatric: Yes: WNL, Alert, Oriented Labs: reviewed 08/12 Imaging - Results EKG: Image Reviewed, Other (sinus bradycardia) Assessment/Plan patient is a 52 y/o female that presents for ect, labs and ekg reviewed patient is medically optimized for procedure informed consent, risks/benefits to be obtained by Dr Chandler
[2017-11-17 07:39] VITALS: TEMP 98.3
[2017-11-17 07:44] VITALS: BMI 23.2
[2017-11-17 12:20] VITALS: BP 151/74; PULSE 55
== END 2017-11-17 10:30 | disposition home or self-care (01) ==
LOC: FECT 05:51
PROVIDERS: ATTEND Psychiatry & Neurology Psychiatry
PROC: GZB4ZZZ Other Electroconvulsive Therapy (ICD-10-PCS; principal; 2017-11-17 08:00)
DX: F33.2 Major depressive disorder, recurrent severe without psychotic features (principal)
CPT/HCPCS: 84703; 90870; 94760

== ENCOUNTER 2017-12-03 06:19 | Day surgery (SDC) | payer OTHER ==
[2017-12-03 07:17] VITALS: TEMP 98; BMI 23.2
[2017-12-03 10:15] VITALS: BP 124/65; PULSE 62
== END 2017-12-03 09:50 | disposition home or self-care (01) ==
LOC: FECT 06:19
PROVIDERS: ATTEND Psychiatry & Neurology Psychiatry
PROC: GZB4ZZZ Other Electroconvulsive Therapy (ICD-10-PCS; principal; 2017-12-03 07:45)
DX: F33.2 Major depressive disorder, recurrent severe without psychotic features (principal)
CPT/HCPCS: 84703; 90870; 94760

== ENCOUNTER → 2017-12-23 | Day surgery (SDC) | payer OTHER ==
[2017-12-23 07:54] VITALS: BP 121/77; PULSE 60; TEMP 97.6; BMI 22.7
--- NOTE | 2017-12-23 08:08 | HP ---
Admitting History and Physical - Admission History of Present Illness: Patient is a 52 y/o female with a past medical history of depression, anxiety, and hyperlipidemia. patient presents for ect her last ect was 12/03/17. Patient reports a significant improvement in depressive symptoms since starting ECT. She reports an ongoing rash to bilateral upper and lower extremities and neck within the past 2 weeks. She reports the rash is worse at night, patient has been self medicating with hydrocortisone cream and martin with no relief of symptoms. Patient denies any new foods, cosmetics or detergents. 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 History of Recent Travel: No Home Medications - Allergies Allergies/Adverse Reactions: Allergies Allergy/AdvReac Type Severity Reaction Status Date / Time No Known Allergies Allergy Verified 09/10/17 13:54 - Home Medications Home Medications: Ambulatory Orders Atorvastatin Calcium [Lipitor] 10 mg PO DAILY 02/05/17 Lamotrigine [Lamictal] 200 mg PO DAILY 02/05/17 Multivitamins [Multivit ([facility] Formulary)] 1 tab PO DAILY 02/05/17 Vortioxetine Hydrobromide [Trintellix] 20 mg PO DAILY 02/05/17 Zolpidem Tartrate [Ambien] 10 mg PO HS 02/05/17 Ethinyl Estradiol/Drospirenone [Loryna 3 mg-0.02 mg Tablet] 1 each PO DAILY clonazePAM [Klonopin -] 0.25 mg PO DAILY PRN 10/25/17 Melatonin 1 mg PO HS 12/23/17 Family Disease History - Family Disease History Family Disease History: Other: Father (depression/anxiety, HLD) Review of Systems - Review of Systems Constitutional: reports: No Symptoms Eyes: reports: No Symptoms HENT: reports: No Symptoms Neck: reports: No Symptoms Cardiovascular: reports: No Symptoms Respiratory: reports: No Symptoms Gastrointestinal: reports: No Symptoms Genitourinary: reports: No Symptoms Musculoskeletal: reports: No Symptoms Integumentary: reports: Pruritis, Rash Neurological: reports: No Symptoms Endocrine: reports: No Symptoms Hematology/Lymphatic: reports: No Symptoms Psychiatric: reports: No Symptoms Physical Examination Vital Signs: Vital Signs Temperature 97.6 F 12/23/17 07:49 Pulse Rate 60 12/23/17 07:49 Respiratory Rate 18 12/23/17 07:49 Blood Pressure 121/77 12/23/17 07:49 O2 Sat by Pulse Oximetry (%) 99 12/23/17 07:49 Constitutional: Yes: Well Nourished, No Distress, Calm Eyes: Yes: WNL, Conjunctiva Clear, EOM Intact HENT: Yes: WNL, Atraumatic, Normocephalic Neck: Yes: WNL, Supple, Trachea Midline Cardiovascular: Yes: WNL, Regular Rate and Rhythm, S1, S2 Respiratory: Yes: WNL, Regular, CTA Bilaterally Gastrointestinal: Yes: WNL, Normal Bowel Sounds, Soft ...Rectal Exam: Yes: Deferred Renal/: Yes: WNL Musculoskeletal: Yes: WNL Extremities: Yes: WNL Edema: No Peripheral Pulses WNL: Yes Peripheral Pulses: Left Radial: 4+, Right Radial: 4+, Left Doralis Pedis: 3+, Right Dorsalis Pedis: 3+, Left Femoral: 3+, Right Femoral: 3+ Integumentary: Yes: Other (papular rash to billateral distal lower and upper extremites, popliteal fosca and anterior neck) Imaging - Results EKG: Image Reviewed, Other (sinus bradycardia) Assessment/Plan patient is a 52 y/o female that presents for ect, labs and ekg reviewed patient is medically optimized for procedure informed consent, risks/benefits to be obtained by Dr Chandler.
== END | disposition home or self-care (01) ==
LOC: FECT 05:44
PROVIDERS: ATTEND Psychiatry & Neurology Psychiatry
PROC: GZB4ZZZ Other Electroconvulsive Therapy (ICD-10-PCS; principal; 2017-12-23)
DX: F33.2 Major depressive disorder, recurrent severe without psychotic features (principal); Z53.8 Procedure and treatment not carried out for other reasons
CPT/HCPCS: 84703; 90870

== ENCOUNTER 2017-12-30 05:33 | Day surgery (SDC) | payer OTHER ==
[2017-12-30 06:34] VITALS: BMI 23.2
[2017-12-30] MEDS ORDERED: ONDANSETRON 4 MG/2 ML VIAL IVPUSH PRN (07:50)
[2017-12-30 08:30] VITALS: TEMP 98.1
[2017-12-30 09:49] VITALS: BP 146/74; PULSE 61
== END 2017-12-30 09:25 | disposition home or self-care (01) ==
LOC: FECT 05:33
PROVIDERS: ATTEND Psychiatry & Neurology Psychiatry
PROC: GZB4ZZZ Other Electroconvulsive Therapy (ICD-10-PCS; principal; 2017-12-30 07:00)
DX: F33.2 Major depressive disorder, recurrent severe without psychotic features (principal)
CPT/HCPCS: 84703; 90870; 94760

== ENCOUNTER 2018-01-27 05:38 | Day surgery (SDC) | payer OTHER ==
--- NOTE | 2018-01-27 07:13 | HP ---
Admitting History and Physical - Admission History of Present Illness: Patient is a 52 y/o female with a past medical history of depression, anxiety and hyperlipidemia. Patient presents for ect, her last ect was 12/30/17. Patient reports a significant improvement in depression and anxiety since starting ect. She denies any changes to her medication. Was recently evaluated by her laborer adjustable steel joist last month for an allergic reaction of unknown source. Patient denies any suicidal or homicidal ideation, visual or auditory hallucinations. 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 History of Recent Travel: No Home Medications - Allergies Allergies/Adverse Reactions: Allergies Allergy/AdvReac Type Severity Reaction Status Date / Time No Known Allergies Allergy Verified 09/10/17 13:54 - Home Medications Home Medications: Ambulatory Orders Atorvastatin Calcium [Lipitor] 10 mg PO DAILY 02/05/17 Lamotrigine [Lamictal] 200 mg PO DAILY 02/05/17 Multivitamins [Multivit ([facility] Formulary)] 1 tab PO DAILY 02/05/17 Vortioxetine Hydrobromide [Trintellix] 20 mg PO DAILY 02/05/17 Zolpidem Tartrate [Ambien] 10 mg PO HS 02/05/17 Ethinyl Estradiol/Drospirenone [Loryna 3 mg-0.02 mg Tablet] 1 each PO DAILY clonazePAM [Klonopin -] 0.25 mg PO DAILY PRN 10/25/17 Melatonin 1 mg PO HS 12/23/17 Family Disease History - Family Disease History Family Disease History: Other: Father (depression/anxiety, HLD) Review of Systems - Review of Systems Constitutional: reports: No Symptoms Eyes: reports: No Symptoms HENT: reports: No Symptoms Neck: reports: No Symptoms Cardiovascular: reports: No Symptoms Respiratory: reports: No Symptoms Gastrointestinal: reports: No Symptoms Genitourinary: reports: No Symptoms Musculoskeletal: reports: No Symptoms Integumentary: reports: No Symptoms Neurological: reports: No Symptoms Endocrine: reports: No Symptoms Hematology/Lymphatic: reports: No Symptoms Psychiatric: reports: No Symptoms Physical Examination Constitutional: Yes: Well Nourished, No Distress, Calm Eyes: Yes: WNL, Conjunctiva Clear, EOM Intact HENT: Yes: WNL, Atraumatic, Normocephalic Neck: Yes: WNL, Supple, Trachea Midline Cardiovascular: Yes: WNL, Regular Rate and Rhythm, S1, S2 Respiratory: Yes: WNL, Regular, CTA Bilaterally Gastrointestinal: Yes: WNL, Normal Bowel Sounds, Soft ...Rectal Exam: Yes: Deferred Renal/: Yes: WNL Breast(s): Yes: WNL Musculoskeletal: Yes: WNL Extremities: Yes: WNL Edema: No Peripheral Pulses WNL: Yes Peripheral Pulses: Left Radial: 4+, Right Radial: 4+, Left Doralis Pedis: 3+, Right Dorsalis Pedis: 3+, Left Femoral: 3+, Right Femoral: 3+ Integumentary: Yes: WNL Neurological: Yes: WNL, Alert, Oriented ...Motor Strength: WNL Psychiatric: Yes: WNL, Alert, Oriented Labs: reviewed 08/12 Imaging - Results EKG: Other (sinus bradycardia) Assessment/Plan patient is a 52 y/o female that presents for ect, labs and ekg reviewed.
[2018-01-27 07:44] VITALS: BMI 23.1
[2018-01-27 10:06] VITALS: TEMP 98.3
[2018-01-27 10:10] VITALS: BP 135/75; PULSE 56
== END 2018-01-27 10:15 | disposition home or self-care (01) ==
LOC: FECT 05:38
PROVIDERS: ATTEND Psychiatry & Neurology Psychiatry
PROC: GZB4ZZZ Other Electroconvulsive Therapy (ICD-10-PCS; principal; 2018-01-27 07:00)
DX: F33.2 Major depressive disorder, recurrent severe without psychotic features (principal)
CPT/HCPCS: 84703; 90870; 94760

== ENCOUNTER 2018-02-24 05:31 | Day surgery (SDC) | payer OTHER ==
[2018-02-22 11:42] VITALS: BMI 23.0
[2018-02-24 08:48] VITALS: PULSE 58; TEMP 98.5
[2018-02-24 09:25] LABS: BASO % 0.8 % (0-2.0); EOS % 2.6 % (0-4.5); HEMATOCRIT 38.9 % (32.4-45.2); HEMOGLOBIN 13.4 GM/dl (10.7-15.3); LYMPH % 29.2 % (8-40); MCH 30.2 pg (25.7-33.7); MCHC 34.5 g/dl (32.0-36.0); MEAN CELL VOLUME 87.7 fl (80-96); MEAN PLT VOLUME 6.6 fl (7.5-11.1); MONO % 7.4 % (3.8-10.2); PLATELET COUNT 389 K/MM3 (134-434); RBC 4.44 M/mm3 (3.60-5.2); RDW 13.8 % (11.6-15.6); WHITE BLOOD COUNT 5.7 K/mm3 (4.0-10.8)
[2018-02-24 09:26] VITALS: BP 129/79
[2018-02-24 09:33] LABS: ALBUMIN 3.5 g/dl (3.5-5.0); ALK PHOS 49 U/L (32-92); ANION GAP 6 (8-16); BILIRUBIN,TOTAL 0.6 mg/dl (0.2-1.0); BLOOD UREA NITROGEN 19 mg/dl (7-18); CALCIUM 8.9 mg/dl (8.4-10.2); CHLORIDE 98 mmol/L (98-107); CO2 26 mmol/L (22-28); CREATININE 0.9 mg/dl (0.6-1.3); GLUCOSE,RANDOM 88 mg/dl (74-106); POTASSIUM 4.4 mmol/L (3.5-5.1); SGOT/AST 39 U/L (10-42); SGPT/ALT 22 U/L (10-40); SODIUM 130 mmol/L (136-145); TOT PROT 6.4 g/dl (6.4-8.3)
--- NOTE | 2018-02-24 12:49 | EKG ---
Test Reason : Blood Pressure : / mmHG Vent. Rate : 054 BPM Atrial Rate : 054 BPM P-R Int : 104 ms QRS Dur : 076 ms QT Int : 448 ms P-R-T Axes : 035 008 039 degrees QTc Int : 424 ms SINUS BRADYCARDIA WITH SHORT AL OTHERWISE NORMAL ECG WHEN COMPARED WITH ECG OF 06-AUG-2017 07:37, CRITERIA FOR SEPTAL INFARCT ARE NO LONGER PRESENT Confirmed by BEN FRASER MD ([id number]) on 02/24/2018 12:48:41 PM Referred By: Partha Chandler Confirmed By:BEN FRASER MD
== END 2018-02-24 09:25 | disposition home or self-care (01) ==
LOC: FECT 05:31
PROVIDERS: ATTEND Psychiatry & Neurology Psychiatry
PROC: GZB4ZZZ Other Electroconvulsive Therapy (ICD-10-PCS; principal; 2018-02-24 07:15)
DX: F33.2 Major depressive disorder, recurrent severe without psychotic features (principal)
CPT/HCPCS: 36415; 80053; 84703; 85025; 90870; 93005; 94760

== ENCOUNTER 2018-03-21 05:38 | Day surgery (SDC) | payer OTHER ==
[2018-03-18 15:16] VITALS: BMI 23.0
[2018-03-21 07:06] VITALS: TEMP 97.8
--- NOTE | 2018-03-21 07:15 | HP ---
Admitting History and Physical - Admission History of Present Illness: Patient is a 52 y/o female with a past medical history of depression, anxiety and hyperlipidemia. Patient presents for ect, her last ect was 02/24/18. Patient does reports an increase in depressive symptoms within the past 2 weeks and her ect sessions was increased to three times a week. She denies any suicidal or homicidal ideation, visual or auditory hallucinations. She reports rexulti was added to her current medication regimen and is tolerating the medication well as per the patient. She denies any recent illnesses or hospitalizations. 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 History of Recent Travel: No Home Medications - Allergies Allergies/Adverse Reactions: Allergies Allergy/AdvReac Type Severity Reaction Status Date / Time No Known Allergies Allergy Verified 01/27/18 07:37 - Home Medications Home Medications: Ambulatory Orders Atorvastatin Calcium [Lipitor] 10 mg PO DAILY 02/05/17 Lamotrigine [Lamictal] 200 mg PO DAILY 02/05/17 Multivitamins [Multivit ([facility] Formulary)] 1 tab PO DAILY 02/05/17 Vortioxetine Hydrobromide [Trintellix] 20 mg PO DAILY 02/05/17 Zolpidem Tartrate [Ambien] 10 mg PO HS 02/05/17 Ethinyl Estradiol/Drospirenone [Loryna 3 mg-0.02 mg Tablet] 1 each PO DAILY Melatonin 1 mg PO HS 12/23/17 Diphenhydramine HCl [Benadryl Capsule -] 25 mg PO PRN PRN 01/27/18 Gluc Maria/Chondro Maria A/Vit C/Mn [Glucosamine-Chondroitin Caps] 1 each PO DAILY 12/10 Loratadine [Claritin] 10 mg PO PRN PRN 01/27/18 Brexpiprazole [Rexulti] 0.5 mg PO HS 03/21/18 Family Disease History - Family Disease History Family Disease History: Other: Father (depression/anxiety, HLD) Review of Systems - Review of Systems Constitutional: reports: No Symptoms Eyes: reports: No Symptoms HENT: reports: No Symptoms Neck: reports: No Symptoms Cardiovascular: reports: No Symptoms Respiratory: reports: No Symptoms Gastrointestinal: reports: No Symptoms Genitourinary: reports: No Symptoms Musculoskeletal: reports: No Symptoms Integumentary: reports: No Symptoms Neurological: reports: No Symptoms Endocrine: reports: No Symptoms Hematology/Lymphatic: reports: No Symptoms Psychiatric: reports: Anxiety Physical Examination Vital Signs: Vital Signs Temperature 97.8 F 03/21/18 07:03 Pulse Rate 54 L 03/21/18 07:03 Respiratory Rate 18 03/21/18 07:03 Blood Pressure 115/70 03/21/18 07:03 O2 Sat by Pulse Oximetry (%) 99 03/21/18 07:03 Constitutional: Yes: Well Nourished, No Distress, Calm Eyes: Yes: WNL, Conjunctiva Clear, EOM Intact HENT: Yes: WNL, Atraumatic, Normocephalic Neck: Yes: WNL, Supple, Trachea Midline Cardiovascular: Yes: WNL, Regular Rate and Rhythm, S1, S2 Respiratory: Yes: WNL, Regular, CTA Bilaterally Gastrointestinal: Yes: WNL, Normal Bowel Sounds, Soft ...Rectal Exam: Yes: Deferred Renal/: Yes: WNL Breast(s): Yes: WNL Musculoskeletal: Yes: WNL Extremities: Yes: WNL Edema: No Peripheral Pulses WNL: Yes Peripheral Pulses: Left Radial: 4+, Right Radial: 4+, Left Doralis Pedis: 3+, Right Dorsalis Pedis: 3+, Left Femoral: 3+, Right Femoral: 3+ Integumentary: Yes: WNL Neurological: Yes: WNL, Alert, Oriented ...Motor Strength: WNL Psychiatric: Yes: WNL, Alert, Oriented Labs: reviewed 02/24/18 Imaging - Results EKG: Other (sinus bradycardia) Assessment/Plan patient is a 52 y/o female that presents for ect, labs and ekg reviewed patient is medically opitimized for procedure informed consent, risks/benefits to be obtained by Dr Chandler
[2018-03-21] MEDS ORDERED: KETAMINE HCL 500 MG/10 ML VIAL ONE (08:08)
[2018-03-21 10:08] VITALS: BP 135/78; PULSE 56
== END 2018-03-21 09:50 | disposition home or self-care (01) ==
LOC: FECT 05:38
PROVIDERS: ATTEND Psychiatry & Neurology Psychiatry
PROC: GZB4ZZZ Other Electroconvulsive Therapy (ICD-10-PCS; principal; 2018-03-21 07:45)
DX: F33.2 Major depressive disorder, recurrent severe without psychotic features (principal)
CPT/HCPCS: 90870; 94760

== ENCOUNTER 2018-03-25 05:37 | Day surgery (SDC) | payer OTHER ==
[2018-03-25 07:08] VITALS: BMI 23.0
[2018-03-25 09:06] VITALS: TEMP 98.6
[2018-03-25 09:25] VITALS: BP 131/84; PULSE 60
== END 2018-03-25 09:30 | disposition home or self-care (01) ==
LOC: FECT 05:37
PROVIDERS: ATTEND Psychiatry & Neurology Psychiatry
PROC: GZB4ZZZ Other Electroconvulsive Therapy (ICD-10-PCS; principal; 2018-03-25 07:45)
DX: F33.2 Major depressive disorder, recurrent severe without psychotic features (principal)
CPT/HCPCS: 90870; 94760

== ENCOUNTER 2018-04-05 05:42 | Day surgery (SDC) | payer OTHER ==
[2018-04-01 07:19] VITALS: BMI 23.0
[2018-04-05 08:52] VITALS: TEMP 98.5
[2018-04-05] MEDS ORDERED: ONDANSETRON 4 MG/2 ML VIAL IVPUSH PRN (08:55)
[2018-04-05 08:56] VITALS: BP 129/79; PULSE 64
[2018-04-05] MEDS ORDERED: LACTATED RINGERS SOLUTION 1,000 ML IV SCH (09:00)
== END 2018-04-05 09:25 | disposition home or self-care (01) ==
LOC: FECT 05:42
PROVIDERS: ATTEND Psychiatry & Neurology Psychiatry
PROC: GZB4ZZZ Other Electroconvulsive Therapy (ICD-10-PCS; principal; 2018-04-05 07:30)
DX: F33.2 Major depressive disorder, recurrent severe without psychotic features (principal)
CPT/HCPCS: 90870; 94760

== ENCOUNTER 2018-04-13 05:31 | Day surgery (SDC) | payer OTHER ==
[2018-04-07 12:42] VITALS: BMI 23.0
[2018-04-13] MEDS ORDERED: KETAMINE HCL 500 MG/10 ML VIAL ONE (07:47)
[2018-04-13 08:51] VITALS: TEMP 98.8
[2018-04-13 09:52] VITALS: BP 118/66; PULSE 56
== END 2018-04-13 09:35 | disposition home or self-care (01) ==
LOC: FECT 05:31
PROVIDERS: ATTEND Psychiatry & Neurology Psychiatry
PROC: GZB4ZZZ Other Electroconvulsive Therapy (ICD-10-PCS; principal; 2018-04-13 07:00)
DX: F33.2 Major depressive disorder, recurrent severe without psychotic features (principal)
CPT/HCPCS: 90870; 94760

== ENCOUNTER 2018-04-21 05:45 | Day surgery (SDC) | payer OTHER ==
[2018-04-21] MEDS ORDERED: oxyCODONE HCL 5 MG TABLET PO PRN (06:43)
[2018-04-21 06:55] VITALS: TEMP 98.2; BMI 23.0
[2018-04-21] MEDS ORDERED: KETAMINE HCL 500 MG/10 ML VIAL ONE (07:17)
--- NOTE | 2018-04-21 08:43 | HP ---
Admitting History and Physical - Admission History of Present Illness: Patient is a 52 y/o male with a past medical history of depression, anxiety, and hyperlipidemia. Patient presents for ect, she has been undergoing ect since 2017, her last ect was 04/13/18. patient reports feeling well she reports an improvement for depressive symptoms since starting ect. She denies any suicidal or homicidal ideation patient denies any visual or auditory hallucinations. Patient does report compliance with prescribed medications. She denies any recent illnesses or hospitalizations. 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 History of Recent Travel: No Home Medications - Allergies Allergies/Adverse Reactions: Allergies Allergy/AdvReac Type Severity Reaction Status Date / Time No Known Allergies Allergy Verified 01/27/18 07:37 - Home Medications Home Medications: Ambulatory Orders Atorvastatin Calcium [Lipitor] 10 mg PO DAILY 02/05/17 Lamotrigine [Lamictal] 200 mg PO DAILY 02/05/17 Multivitamins [Multivit ([facility] Formul[facility])] 1 tab PO DAILY 02/05/17 Vortioxetine Hydrobromide [Trintellix] 20 mg PO DAILY 02/05/17 Zolpidem Tartrate [Ambien] 10 mg PO HS 02/05/17 Ethinyl Estradiol/Drospirenone [Loryna 3 mg-0.02 mg Tablet] 1 each PO DAILY Gluc Maria/Chondro Maria A/Vit C/Mn [Glucosamine-Chondroitin Caps] 1 each PO DAILY 12/10 Brexpiprazole [Rexulti] 1 mg PO HS 03/21/18 Family Disease History - Family Disease History Family Disease History: Other: Father (depression/anxiety, HLD) Review of Systems - Review of Systems Constitutional: reports: No Symptoms Eyes: reports: No Symptoms HENT: reports: No Symptoms Neck: reports: No Symptoms Cardiovascular: reports: No Symptoms Respiratory: reports: No Symptoms Gastrointestinal: reports: No Symptoms Genitourinary: reports: No Symptoms Musculoskeletal: reports: No Symptoms Integumentary: reports: No Symptoms Neurological: reports: No Symptoms Endocrine: reports: No Symptoms Hematology/Lymphatic: reports: No Symptoms Psychiatric: reports: No Symptoms Physical Examination Vital Signs: Vital Signs Temperature 98.2 F 04/21/18 08:05 Pulse Rate 59 L 04/21/18 08:05 Respiratory Rate 04/21/18 08:05 Blood Pressure 138/74 04/21/18 08:05 O2 Sat by Pulse Oximetry (%) 99 04/21/18 08:05 Constitutional: Yes: Well Nourished, No Distress, Calm Eyes: Yes: WNL, Conjunctiva Clear, EOM Intact HENT: Yes: WNL, Atraumatic, Normocephalic Neck: Yes: WNL, Supple, Trachea Midline Cardiovascular: Yes: WNL, Regular Rate and Rhythm, S1, S2 Respiratory: Yes: WNL, Regular, CTA Bilaterally Gastrointestinal: Yes: WNL, Normal Bowel Sounds, Soft ...Rectal Exam: Yes: Deferred Renal/: Yes: WNL Musculoskeletal: Yes: WNL Extremities: Yes: WNL Edema: No Peripheral Pulses WNL: Yes Peripheral Pulses: Left Radial: 4+, Right Radial: 4+, Left Doralis Pedis: 3+, Right Dorsalis Pedis: 3+, Left Femoral: 3+, Right Femoral: 3+ Integumentary: Yes: WNL Neurological: Yes: WNL, Alert, Oriented ...Motor Strength: WNL Psychiatric: Yes: Alert, Oriented Labs: reviewed 03/12 Imaging - Results EKG: Image Reviewed, Other (sinus bradycardia) Assessment/Plan patient is a 52 y/o female, that presents for ect, labs and ekg reviewed patient is medically optimized for procedure informed consent, risks/benefits to be obtained by Dr Chandler
[2018-04-21 09:23] VITALS: BP 134/64; PULSE 60
== END 2018-04-21 09:05 | disposition home or self-care (01) ==
LOC: FECT 05:45
PROVIDERS: ATTEND Psychiatry & Neurology Psychiatry
PROC: GZB4ZZZ Other Electroconvulsive Therapy (ICD-10-PCS; principal; 2018-04-21 07:00)
DX: F33.2 Major depressive disorder, recurrent severe without psychotic features (principal)
CPT/HCPCS: 90870; 94760

== ENCOUNTER 2018-04-28 05:41 | Day surgery (SDC) | payer OTHER ==
[2018-04-28 06:56] VITALS: TEMP 98; BMI 23.2
[2018-04-28 09:01] VITALS: BP 135/74; PULSE 59
== END 2018-04-28 09:20 | disposition home or self-care (01) ==
LOC: FECT 05:41
PROVIDERS: ATTEND Psychiatry & Neurology Psychiatry
PROC: GZB4ZZZ Other Electroconvulsive Therapy (ICD-10-PCS; principal; 2018-04-28 07:45)
DX: F33.2 Major depressive disorder, recurrent severe without psychotic features (principal)
CPT/HCPCS: 90870; 94760

== ENCOUNTER 2018-05-12 05:42 | Day surgery (SDC) | payer OTHER ==
[2018-05-05 12:46] VITALS: BMI 23.2
[2018-05-12 06:34] VITALS: TEMP 98.2
[2018-05-12] MEDS ORDERED: KETAMINE HCL 500 MG/10 ML VIAL ONE (06:55)
[2018-05-12 08:28] VITALS: BP 130/70; PULSE 61
== END 2018-05-12 08:55 | disposition home or self-care (01) ==
LOC: FECT 05:42
PROVIDERS: ATTEND Psychiatry & Neurology Psychiatry
PROC: GZB4ZZZ Other Electroconvulsive Therapy (ICD-10-PCS; principal; 2018-05-12 07:30)
DX: F33.2 Major depressive disorder, recurrent severe without psychotic features (principal)

== ENCOUNTER 2018-05-16 05:44 | Day surgery (SDC) | payer OTHER ==
[2018-05-16 08:19] VITALS: TEMP 98.3; BMI 23.2
[2018-05-16] MEDS ORDERED: KETAMINE HCL 500 MG/10 ML VIAL ONE (08:34)
[2018-05-16 10:14] VITALS: BP 144/74; PULSE 86
== END 2018-05-16 10:14 | disposition home or self-care (01) ==
LOC: FECT 05:44
PROVIDERS: ATTEND Psychiatry & Neurology Psychiatry
PROC: GZB4ZZZ Other Electroconvulsive Therapy (ICD-10-PCS; principal; 2018-05-16 07:30)
DX: F33.2 Major depressive disorder, recurrent severe without psychotic features (principal)
CPT/HCPCS: 90870; 94760

== ENCOUNTER 2018-05-18 05:44 | Day surgery (SDC) | payer OTHER ==
[2018-05-16 10:55] VITALS: BMI 23.2
[2018-05-18 06:32] VITALS: TEMP 98
[2018-05-18] MEDS ORDERED: KETAMINE HCL 500 MG/10 ML VIAL ONE (07:00)
[2018-05-18] MEDS ORDERED: ONDANSETRON 4 MG/2 ML VIAL IVPUSH PRN (09:01)
[2018-05-18 09:02] VITALS: BP 130/69; PULSE 62
[2018-05-18] MEDS ORDERED: LACTATED RINGERS SOLUTION 1,000 ML IV SCH (09:15)
== END 2018-05-18 09:00 | disposition home or self-care (01) ==
LOC: FECT 05:44
PROVIDERS: ATTEND Psychiatry & Neurology Psychiatry
PROC: GZB4ZZZ Other Electroconvulsive Therapy (ICD-10-PCS; principal; 2018-05-18 08:00)
DX: F33.2 Major depressive disorder, recurrent severe without psychotic features (principal)
CPT/HCPCS: 90870; 94760

== ENCOUNTER 2018-05-20 05:43 | Day surgery (SDC) | payer OTHER ==
[2018-05-16 13:30] VITALS: BMI 23.2
[2018-05-20 06:43] VITALS: TEMP 98.2
[2018-05-20] MEDS ORDERED: KETAMINE HCL 500 MG/10 ML VIAL ONE (06:58)
--- NOTE | 2018-05-20 08:04 | HP ---
Admitting History and Physical - Admission History of Present Illness: Patient is a 52 y/o female with a past medical history of anxiety, depression and hyperlipidemia. Patient presents for ect, she has been undergoing ECT since 2017 her last ECT was 05/18/2018. patient reports an increase of depressive symptoms within the past month and her ECT sessions has been increased to 3 days a week. Patient denies any changes in medication she reports compliance with prescribed medications. Patient denies any suicidal homicidal ideation, visual or auditory hallucinations. She denies any illnesses or hospitalizations. 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 Travel: No Home Medications - Allergies Allergies/Adverse Reactions: Allergies Allergy/AdvReac Type Severity Reaction Status Date / Time No Known Allergies Allergy Verified 05/02/18 07:23 - Home Medications Home Medications: Ambulatory Orders Atorvastatin Calcium [Lipitor] 10 mg PO DAILY 02/05/17 Lamotrigine [Lamictal] 200 mg PO DAILY 02/05/17 Multivitamins [Multivit ([facility] Formul[facility])] 1 tab PO DAILY 02/05/17 Vortioxetine Hydrobromide [Trintellix] 20 mg PO DAILY 02/05/17 Zolpidem Tartrate [Ambien] 10 mg PO HS 02/05/17 Ethinyl Estradiol/Drospirenone [Loryna 3 mg-0.02 mg Tablet] 1 each PO DAILY Gluc Maria/Chondro Maria A/Vit C/Mn [Glucosamine-Chondroitin Caps] 1 each PO DAILY 12/10 Family Disease History - Family Disease History Family Disease History: Other: Father (depression/anxiety, HLD) Review of Systems - Review of Systems Constitutional: reports: No Symptoms Eyes: reports: No Symptoms HENT: reports: No Symptoms Neck: reports: No Symptoms Cardiovascular: reports: No Symptoms Respiratory: reports: No Symptoms Gastrointestinal: reports: No Symptoms Genitourinary: reports: No Symptoms Musculoskeletal: reports: No Symptoms Integumentary: reports: No Symptoms Neurological: reports: No Symptoms Endocrine: reports: No Symptoms Hematology/Lymphatic: reports: No Symptoms Psychiatric: reports: Depression Physical Examination Vital Signs: Vital Signs Temperature 98.2 F 05/20/18 06:38 Pulse Rate 60 05/20/18 07:38 Respiratory Rate 18 05/20/18 07:38 Blood Pressure 139/69 05/20/18 07:38 O2 Sat by Pulse Oximetry (%) 96 05/20/18 07:35 Constitutional: Yes: Well Nourished, No Distress, Calm Eyes: Yes: WNL, Conjunctiva Clear, EOM Intact HENT: Yes: WNL, Atraumatic, Normocephalic Neck: Yes: WNL, Supple, Trachea Midline Cardiovascular: Yes: WNL, Regular Rate and Rhythm, S1, S2 Respiratory: Yes: WNL, Regular, CTA Bilaterally Gastrointestinal: Yes: WNL, Normal Bowel Sounds, Soft ...Rectal Exam: Yes: Deferred Renal/: Yes: WNL Breast(s): Yes: WNL Musculoskeletal: Yes: WNL Extremities: Yes: WNL Edema: No Peripheral Pulses WNL: Yes Peripheral Pulses: Left Radial: 4+, Right Radial: 4+, Left Doralis Pedis: 3+, Right Dorsalis Pedis: 3+, Left Femoral: 3+, Right Femoral: 3+ Integumentary: Yes: WNL Neurological: Yes: WNL, Alert, Oriented ...Motor Strength: WNL Psychiatric: Yes: WNL, Alert, Oriented Labs: reviewed 02/24/18 Imaging - Results EKG: Image Reviewed, Other (sinus bradycardia) Assessment/Plan patient is a 52-year-old female presents for ECT Labs and EKG reviewed Patient is medically optimized for procedure
[2018-05-20 08:29] VITALS: BP 144/72; PULSE 56
== END 2018-05-20 09:28 | disposition home or self-care (01) ==
LOC: FECT 05:43
PROVIDERS: ATTEND Psychiatry & Neurology Psychiatry
PROC: GZB4ZZZ Other Electroconvulsive Therapy (ICD-10-PCS; principal; 2018-05-20 08:15)
DX: F33.2 Major depressive disorder, recurrent severe without psychotic features (principal)
CPT/HCPCS: 90870; 94760

== ENCOUNTER 2018-05-23 05:50 | Day surgery (SDC) | payer OTHER ==
[2018-05-23 07:06] VITALS: BMI 23.2
[2018-05-23] MEDS ORDERED: KETAMINE HCL 500 MG/10 ML VIAL ONE (07:34)
[2018-05-23 08:34] VITALS: TEMP 98.2
[2018-05-23 09:06] VITALS: BP 133/71; PULSE 66
== END 2018-05-23 09:24 | disposition home or self-care (01) ==
LOC: FECT 05:50
PROVIDERS: ATTEND Psychiatry & Neurology Psychiatry
PROC: GZB4ZZZ Other Electroconvulsive Therapy (ICD-10-PCS; principal; 2018-05-23 08:00)
DX: F33.2 Major depressive disorder, recurrent severe without psychotic features (principal)
CPT/HCPCS: 90870; 94760

== ENCOUNTER 2018-05-25 05:42 | Day surgery (SDC) | payer OTHER ==
[2018-05-25 06:42] VITALS: BMI 23.3
[2018-05-25] MEDS ORDERED: KETAMINE HCL 500 MG/10 ML VIAL ONE (07:04)
[2018-05-25 08:36] VITALS: TEMP 98.9
[2018-05-25 09:06] VITALS: BP 139/69; PULSE 66
== END 2018-05-25 09:05 | disposition home or self-care (01) ==
LOC: FECT 05:42
PROVIDERS: ATTEND Psychiatry & Neurology Psychiatry
PROC: GZB4ZZZ Other Electroconvulsive Therapy (ICD-10-PCS; principal; 2018-05-25 07:45)
DX: F33.2 Major depressive disorder, recurrent severe without psychotic features (principal)
CPT/HCPCS: 90870; 94760

== ENCOUNTER 2018-05-27 05:37 | Day surgery (SDC) | payer OTHER ==
[2018-05-27 06:53] VITALS: BMI 22.8
[2018-05-27 08:06] VITALS: TEMP 98.2
[2018-05-27 08:41] VITALS: BP 130/72; PULSE 62
== END 2018-05-27 09:01 | disposition home or self-care (01) ==
LOC: FECT 05:37
PROVIDERS: ATTEND Psychiatry & Neurology Psychiatry
PROC: GZB4ZZZ Other Electroconvulsive Therapy (ICD-10-PCS; principal; 2018-05-27 07:15)
DX: F33.2 Major depressive disorder, recurrent severe without psychotic features (principal)
CPT/HCPCS: 90870; 94760

== ENCOUNTER 2018-06-02 05:41 | Day surgery (SDC) | payer OTHER ==
[2018-05-27 17:35] VITALS: BMI 22.8
[2018-06-02] MEDS ORDERED: KETAMINE HCL 500 MG/10 ML VIAL ONE (08:44)
[2018-06-02 10:25] VITALS: TEMP 99.1
[2018-06-02 10:34] VITALS: BP 110/67; PULSE 66
== END 2018-06-02 10:15 | disposition home or self-care (01) ==
LOC: FECT 05:41
PROVIDERS: ATTEND Psychiatry & Neurology Psychiatry
PROC: GZB4ZZZ Other Electroconvulsive Therapy (ICD-10-PCS; principal; 2018-06-02 07:45)
DX: F33.2 Major depressive disorder, recurrent severe without psychotic features (principal)
CPT/HCPCS: 90870; 94760

== ENCOUNTER 2018-06-03 05:50 | Day surgery (SDC) | payer OTHER ==
[2018-05-27 16:57] VITALS: BMI 22.8
[2018-06-03 08:38] VITALS: TEMP 98.7
[2018-06-03 09:25] VITALS: BP 136/84; PULSE 78
== END 2018-06-03 09:15 | disposition home or self-care (01) ==
LOC: FECT 05:50
PROVIDERS: ATTEND Psychiatry & Neurology Psychiatry
PROC: GZB4ZZZ Other Electroconvulsive Therapy (ICD-10-PCS; principal; 2018-06-03 08:15)
DX: F33.2 Major depressive disorder, recurrent severe without psychotic features (principal)
CPT/HCPCS: 90870; 94760

== ENCOUNTER 2018-06-06 05:52 | Day surgery (SDC) | payer OTHER ==
[2018-06-03 13:46] VITALS: BMI 22.8
[2018-06-06] MEDS ORDERED: KETAMINE HCL 500 MG/10 ML VIAL ONE (07:34)
[2018-06-06 08:57] VITALS: TEMP 98.5
[2018-06-06 09:17] VITALS: BP 143/84; PULSE 70
== END 2018-06-06 09:17 | disposition home or self-care (01) ==
LOC: FECT 05:52
PROVIDERS: ATTEND Psychiatry & Neurology Psychiatry
PROC: GZB4ZZZ Other Electroconvulsive Therapy (ICD-10-PCS; principal; 2018-06-06 08:30)
DX: F33.2 Major depressive disorder, recurrent severe without psychotic features (principal)
CPT/HCPCS: 90870; 94760

== ENCOUNTER 2018-06-08 05:43 | Day surgery (SDC) | payer OTHER ==
[2018-06-08 06:35] VITALS: BMI 23.3
[2018-06-08] MEDS ORDERED: KETAMINE HCL 500 MG/10 ML VIAL ONE (06:51)
[2018-06-08 07:48] VITALS: TEMP 98.4
[2018-06-08 08:50] VITALS: BP 122/66; PULSE 63
== END 2018-06-08 09:03 | disposition home or self-care (01) ==
LOC: FECT 05:43
PROVIDERS: ATTEND Psychiatry & Neurology Psychiatry
PROC: GZB4ZZZ Other Electroconvulsive Therapy (ICD-10-PCS; principal; 2018-06-08 07:30)
DX: F33.2 Major depressive disorder, recurrent severe without psychotic features (principal)
CPT/HCPCS: 90870; 94760

== ENCOUNTER 2018-06-10 05:46 | Day surgery (SDC) | payer OTHER ==
[2018-06-08 08:02] VITALS: BMI 23.3
[2018-06-10 06:56] VITALS: TEMP 98.2
[2018-06-10] MEDS ORDERED: KETAMINE HCL 500 MG/10 ML VIAL ONE (07:12)
[2018-06-10 08:21] VITALS: BP 132/80; PULSE 66
== END 2018-06-10 09:00 | disposition home or self-care (01) ==
LOC: FECT 05:46
PROVIDERS: ATTEND Psychiatry & Neurology Psychiatry
PROC: GZB4ZZZ Other Electroconvulsive Therapy (ICD-10-PCS; principal; 2018-06-10 08:00)
DX: F33.2 Major depressive disorder, recurrent severe without psychotic features (principal)
CPT/HCPCS: 90870; 94760

== ENCOUNTER 2018-06-13 05:52 | Day surgery (SDC) | payer OTHER ==
[2018-06-08 13:05] VITALS: BMI 23.3
[2018-06-13] MEDS ORDERED: KETAMINE HCL 500 MG/10 ML VIAL ONE (07:39)
[2018-06-13 09:05] VITALS: TEMP 99.2
[2018-06-13 09:14] VITALS: BP 140/80; PULSE 69
== END 2018-06-13 09:15 | disposition home or self-care (01) ==
LOC: FECT 05:52
PROVIDERS: ATTEND Psychiatry & Neurology Psychiatry
PROC: GZB4ZZZ Other Electroconvulsive Therapy (ICD-10-PCS; principal; 2018-06-13 07:45)
DX: F33.2 Major depressive disorder, recurrent severe without psychotic features (principal)
CPT/HCPCS: 90870; 94760

== ENCOUNTER 2018-06-15 05:52 | Day surgery (SDC) | payer OTHER ==
[2018-06-10 15:11] VITALS: BMI 23.3
[2018-06-15] MEDS ORDERED: KETAMINE HCL 500 MG/10 ML VIAL ONE (08:02)
--- NOTE | 2018-06-15 09:23 | HP ---
CHIEF COMPLAINT: Major Depressive Disorder PCP: [facility] Primary psych: Charlie Brantley HISTORY OF PRESENT ILLNESS: 52 year-old female with a PMH significant for HLD and major depressive disorder. Patient has been undergoing ECT since 2017. She presents today for ECT. 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 Smoking: never Alcohol: occasional Drugs: no Family History: Allergies No Known Allergies Allergy (Verified 06/10/18 14:57) HOME MEDICATIONS: Home Medications Medication Instructions Recorded Atorvastatin Calcium [Lipitor] 10 mg PO DAILY 02/05/17 Lamotrigine [Lamictal] 200 mg PO DAILY 02/05/17 Multivitamins [Multivit ([facility] 1 tab PO DAILY 02/05/17 Formulary)] Zolpidem Tartrate [Ambien] 10 mg PO HS 02/05/17 Ethinyl Estradiol/Drospirenone 1 each PO DAILY 02/10/17 [Loryna 3 mg-0.02 mg Tablet] Gluc Maria/Chondro Maria A/Vit C/Mn 1 each PO DAILY 01/27/18 [Glucosamine-Chondroitin Caps] Vortioxetine Hydrobromide 30 mg PO DAILY 05/23/18 [Trintellix] Clonazepam [Klonopin] 1 mg PO HS PRN 06/13/18 REVIEW OF SYSTEMS CONSTITUTIONAL: Absent: fever, chills, diaphoresis, generalized weakness, malaise, loss of appetite, weight change HEENT: Absent: rhinorrhea, nasal congestion, throat pain, throat swelling, difficulty swallowing, mouth swelling, ear pain, eye pain, visual changes CARDIOVASCULAR: Absent: chest pain, syncope, palpitations, irregular heart rate, lightheadedness , peripheral edema RESPIRATORY: Absent: cough, shortness of breath, dyspnea with exertion, orthopnea, wheezing, stridor, hemoptysis GASTROINTESTINAL: Absent: abdominal pain, abdominal distension, nausea, vomiting, diarrhea, constipation, melena, hematochezia GENITOURINARY: Absent: dysuria, frequency, urgency, hesitancy, hematuria, flank pain, genital pain MUSCULOSKELETAL: Absent: myalgia, arthralgia, joint swelling, back pain, neck pain SKIN: Absent: rash, itching, pallor HEMATOLOGIC/IMMUNOLOGIC: Absent: easy bleeding, easy bruising, lymphadenopathy, frequent infections ENDOCRINE: Absent: unexplained weight gain, unexplained weight loss, heat intolerance, cold intolerance NEUROLOGIC: Absent: headache, focal weakness or paresthesias, dizziness, unsteady gait, seizure, mental status changes, bladder or bowel incontinence PHYSICAL EXAMINATION Vital Signs - 24 hr 06/15/18 06/15/18 06/15/18 07:11 08:27 08:33 Temperature 98.2 F Pulse Rate 56 L 66 69 Respiratory 16 16 22 H Rate Blood Pressure 135/80 173/85 H 149/77 O2 Sat by Pulse 98 99 100 Oximetry (%) 06/15/18 06/15/18 06/15/18 08:37 08:43 08:58 Temperature Pulse Rate 67 66 66 Respiratory 23 H 15 12 Rate Blood Pressure 157/73 149/74 139/68 O2 Sat by Pulse 100 98 Oximetry (%) GENERAL: Awake, alert, and fully oriented, in no acute distress. LUNGS: Breath sounds equal, clear to auscultation bilaterally. No wheezes, and no crackles. No accessory muscle use. HEART: Regular rate and rhythm, normal S1 and S2 without murmur, rub or gallop. ABDOMEN: Soft, nontender, not distended, normoactive bowel sounds, no guarding, no rebound, no masses. No hepatomegaly or splenomegaly. MUSCULOSKELETAL: Normal range of motion at all joints. No bony deformities or tenderness. No CVA tenderness. UPPER EXTREMITIES: 2+ pulses, warm, well-perfused. No cyanosis. No clubbing. No peripheral edema. LOWER EXTREMITIES: 2+ pulses, warm, well-perfused. No calf tenderness. No peripheral edema. NEUROLOGICAL: Cranial nerves II-XII intact. Normal speech. Normal gait. ASSESSMENT/PLAN 52 year-old female with a PMH significant for HLD and major depressive disorder. Presents today for ECT. Cardiac --no cardiac history --Revised Cardiac Risk Index for Pre-Operative Risk: 0 points, 0.4% risk of major cardiac event Pulmonary --no pulmonary history Neurological --no neurological or neurosurgical history; no history of trauma Anesthesia --no reported previous problems with anesthesia ECT is a low risk procedure. The relative benefits of the planned procedure outweigh the relative risks for this patient at this time. Visit type - Emergency Visit Emergency Visit: No - New Patient This patient is new to me today: Yes Date on this admission: 06/15/18 - Critical Care Critical Care patient: No
[2018-06-15 09:31] VITALS: TEMP 98.3
[2018-06-15 09:52] VITALS: BP 139/81; PULSE 66
== END 2018-06-15 09:40 | disposition home or self-care (01) ==
LOC: FECT 05:52
PROVIDERS: ATTEND Psychiatry & Neurology Psychiatry
PROC: GZB4ZZZ Other Electroconvulsive Therapy (ICD-10-PCS; principal; 2018-06-15 08:30)
DX: F33.2 Major depressive disorder, recurrent severe without psychotic features (principal)
CPT/HCPCS: 90870; 94760

== ENCOUNTER 2018-06-20 05:58 | Day surgery (SDC) | payer OTHER ==
[2018-06-15 13:55] VITALS: BMI 23.3
[2018-06-20] MEDS ORDERED: KETAMINE HCL 500 MG/10 ML VIAL ONE (07:27)
[2018-06-20 08:33] VITALS: TEMP 98.1
[2018-06-20 08:51] VITALS: BP 132/80; PULSE 62
== END 2018-06-20 09:00 | disposition home or self-care (01) ==
LOC: FECT 05:58
PROVIDERS: ATTEND Psychiatry & Neurology Psychiatry
PROC: GZB4ZZZ Other Electroconvulsive Therapy (ICD-10-PCS; principal; 2018-06-20 08:45)
DX: F33.2 Major depressive disorder, recurrent severe without psychotic features (principal)
CPT/HCPCS: 90870; 94760

== ENCOUNTER 2018-06-22 05:42 | Day surgery (SDC) | payer OTHER ==
[2018-06-20 11:03] VITALS: BMI 23.3
[2018-06-22] MEDS ORDERED: KETAMINE HCL 500 MG/10 ML VIAL ONE (08:03)
[2018-06-22 09:19] VITALS: TEMP 98.6
[2018-06-22 09:50] VITALS: BP 133/66; PULSE 68
== END 2018-06-22 09:30 | disposition home or self-care (01) ==
LOC: FECT 05:42
PROVIDERS: ATTEND Psychiatry & Neurology Psychiatry
PROC: GZB4ZZZ Other Electroconvulsive Therapy (ICD-10-PCS; principal; 2018-06-22 07:30)
DX: F33.2 Major depressive disorder, recurrent severe without psychotic features (principal)
CPT/HCPCS: 90870; 94760

== ENCOUNTER 2018-06-27 05:39 | Day surgery (SDC) | payer OTHER ==
[2018-06-20 11:05] VITALS: BMI 23.3
[2018-06-27] MEDS ORDERED: KETAMINE HCL 500 MG/10 ML VIAL ONE (07:18)
[2018-06-27 08:42] VITALS: TEMP 98.2
[2018-06-27 09:11] VITALS: BP 115/77; PULSE 63
== END 2018-06-27 09:15 | disposition home or self-care (01) ==
LOC: FECT 05:39
PROVIDERS: ATTEND Psychiatry & Neurology Psychiatry
PROC: GZB4ZZZ Other Electroconvulsive Therapy (ICD-10-PCS; principal; 2018-06-27 07:00)
DX: F33.2 Major depressive disorder, recurrent severe without psychotic features (principal)
CPT/HCPCS: 90870; 94760

== ENCOUNTER 2018-07-01 05:43 | Day surgery (SDC) | payer OTHER ==
[2018-07-01 07:01] VITALS: BMI 23.3
[2018-07-01] MEDS ORDERED: KETAMINE HCL 500 MG/10 ML VIAL ONE (07:52)
[2018-07-01] MEDS ORDERED: ONDANSETRON 4 MG/2 ML VIAL IVPUSH PRN (08:51)
[2018-07-01 08:52] VITALS: PULSE 60
[2018-07-01] MEDS ORDERED: LACTATED RINGERS SOLUTION 1,000 ML IV SCH (09:00)
[2018-07-01 09:06] VITALS: BP 133/73; TEMP 98.3
== END 2018-07-01 09:30 | disposition home or self-care (01) ==
LOC: FECT 05:43
PROVIDERS: ATTEND Psychiatry & Neurology Psychiatry
PROC: GZB4ZZZ Other Electroconvulsive Therapy (ICD-10-PCS; principal; 2018-07-01 07:15)
DX: F33.2 Major depressive disorder, recurrent severe without psychotic features (principal)
CPT/HCPCS: 90870; 94760

== ENCOUNTER 2018-07-05 05:44 | Day surgery (SDC) | payer OTHER ==
[2018-07-05 06:42] VITALS: BMI 23.3
[2018-07-05] MEDS ORDERED: KETAMINE HCL 500 MG/10 ML VIAL ONE (07:05)
[2018-07-05 08:20] VITALS: TEMP 98.8
[2018-07-05 08:50] VITALS: BP 138/79; PULSE 59
== END 2018-07-05 09:15 | disposition home or self-care (01) ==
LOC: FECT 05:44
PROVIDERS: ATTEND Psychiatry & Neurology Psychiatry
PROC: GZB4ZZZ Other Electroconvulsive Therapy (ICD-10-PCS; principal; 2018-07-05 07:30)
DX: F33.2 Major depressive disorder, recurrent severe without psychotic features (principal)
CPT/HCPCS: 90870; 94760

== ENCOUNTER 2018-07-08 05:43 | Day surgery (SDC) | payer OTHER ==
[2018-07-08 07:10] VITALS: BMI 23.2
[2018-07-08] MEDS ORDERED: KETAMINE HCL 500 MG/10 ML VIAL ONE (07:31)
[2018-07-08 08:57] VITALS: TEMP 98.9
[2018-07-08 09:26] VITALS: BP 127/81; PULSE 62
== END 2018-07-08 09:20 | disposition home or self-care (01) ==
LOC: FECT 05:43
PROVIDERS: ATTEND Psychiatry & Neurology Psychiatry
PROC: GZB4ZZZ Other Electroconvulsive Therapy (ICD-10-PCS; principal; 2018-07-08 07:00)
DX: F32.9 Major depressive disorder, single episode, unspecified (principal)
CPT/HCPCS: 90870; 94760

== ENCOUNTER 2018-07-12 06:00 | Day surgery (SDC) | payer OTHER ==
[2018-07-08 14:55] VITALS: BMI 23.2
[2018-07-12] MEDS ORDERED: KETAMINE HCL 500 MG/10 ML VIAL ONE (07:51)
[2018-07-12 08:56] VITALS: TEMP 98.1
[2018-07-12 09:21] VITALS: BP 132/64; PULSE 59
--- NOTE | 2018-07-12 11:25 | HP ---
CHIEF COMPLAINT: Major Depressive Disorder PCP: [facility] Primary psych: Charlie Brantley HISTORY OF PRESENT ILLNESS: 52 year-old female with a PMH significant for HLD and major depressive disorder. Patient has been undergoing ECT since 2017. She presents today for ECT. 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 Smoking: never Alcohol: occasional Drugs: no Family History: Allergies No Known Allergies Allergy (Verified 06/10/18 14:57) HOME MEDICATIONS: Home Medications Medication Instructions Recorded Atorvastatin Calcium [Lipitor] 10 mg PO DAILY 02/05/17 Lamotrigine [Lamictal] 200 mg PO DAILY 02/05/17 Zolpidem Tartrate [Ambien] 10 mg PO HS 02/05/17 Ethinyl Estradiol/Drospirenone 1 each PO DAILY 02/10/17 [Loryna 3 mg-0.02 mg Tablet] Gluc Maria/Chondro Maria A/Vit C/Mn 1 each PO DAILY 01/27/18 [Glucosamine-Chondroitin Caps] Vortioxetine Hydrobromide 40 mg PO DAILY 05/23/18 [Trintellix] Clonazepam [Klonopin] 1 mg PO HS PRN 06/13/18 Ibuprofen [Advil -] 400 mg PO DAILY PRN 07/01/18 Amoxicillin - [Amoxicillin 250mg 250 mg PO TID 07/12/18 Capsule -] REVIEW OF SYSTEMS CONSTITUTIONAL: Absent: fever, chills, diaphoresis, generalized weakness, malaise, loss of appetite, weight change HEENT: Absent: rhinorrhea, nasal congestion, throat pain, throat swelling, difficulty swallowing, mouth swelling, ear pain, eye pain, visual changes CARDIOVASCULAR: Absent: chest pain, syncope, palpitations, irregular heart rate, lightheadedness , peripheral edema RESPIRATORY: Absent: cough, shortness of breath, dyspnea with exertion, orthopnea, wheezing, stridor, hemoptysis GASTROINTESTINAL: Absent: abdominal pain, abdominal distension, nausea, vomiting, diarrhea, constipation, melena, hematochezia GENITOURINARY: Absent: dysuria, frequency, urgency, hesitancy, hematuria, flank pain, genital pain MUSCULOSKELETAL: Absent: myalgia, arthralgia, joint swelling, back pain, neck pain SKIN: Absent: rash, itching, pallor HEMATOLOGIC/IMMUNOLOGIC: Absent: easy bleeding, easy bruising, lymphadenopathy, frequent infections ENDOCRINE: Absent: unexplained weight gain, unexplained weight loss, heat intolerance, cold intolerance NEUROLOGIC: Absent: headache, focal weakness or paresthesias, dizziness, unsteady gait, seizure, mental status changes, bladder or bowel incontinence PSYCHIATRIC: Absent: anxiety, depression, suicidal or homicidal ideation, hallucinations. PHYSICAL EXAMINATION Vital Signs - 24 hr 07/12/18 07/12/18 07/12/18 06:40 08:16 08:20 Temperature 98.6 F Pulse Rate 60 70 65 Respiratory 18 18 19 Rate Blood Pressure 120/64 149/73 142/69 O2 Sat by Pulse 99 99 100 Oximetry (%) GENERAL: Awake, alert, and fully oriented, in no acute distress. HEAD: Normal with no signs of trauma. EYES: Pupils equal, round and reactive to light, extraocular movements intact, sclera anicteric, conjunctiva clear. No lid lag. EARS, NOSE, THROAT: Ears normal, nares patent, oropharynx clear without exudates. Moist mucous membranes. NECK: Normal range of motion, supple without lymphadenopathy, JVD, or masses. LUNGS: Breath sounds equal, clear to auscultation bilaterally. No wheezes, and no crackles. No accessory muscle use. HEART: Regular rate and rhythm, normal S1 and S2 without murmur, rub or gallop. ABDOMEN: Soft, nontender, not distended, normoactive bowel sounds, no guarding, no rebound, no masses. No hepatomegaly or splenomegaly. MUSCULOSKELETAL: Normal range of motion at all joints. No bony deformities or tenderness. No CVA tenderness. UPPER EXTREMITIES: 2+ pulses, warm, well-perfused. No cyanosis. No clubbing. No peripheral edema. LOWER EXTREMITIES: 2+ pulses, warm, well-perfused. No calf tenderness. No peripheral edema. NEUROLOGICAL: Cranial nerves II-XII intact. Normal speech. Normal gait. PSYCHIATRIC: Cooperative. Good eye contact. Appropriate mood and affect. SKIN: Warm, dry, normal turgor, no rashes or lesions noted, normal capillary refill. ASSESSMENT/PLAN: 52 year-old female with a PMH significant for HLD and major depressive disorder. Presents today for ECT. Cardiac --no cardiac history --Revised Cardiac Risk Index for Pre-Operative Risk: 0 points, 0.4% risk of major cardiac event Pulmonary --no pulmonary history Neurological --no neurological or neurosurgical history; no history of trauma Anesthesia --no reported previous problems with anesthesia ECT is a low risk procedure. The relative benefits of the planned procedure outweigh the relative risks for this patient at this time. Visit type - Emergency Visit Emergency Visit: No - New Patient This patient is new to me today: Yes Date on this admission: 07/12/18 - Critical Care Critical Care patient: No
== END 2018-07-12 09:31 | disposition home or self-care (01) ==
LOC: FECT 06:00
PROVIDERS: ATTEND Psychiatry & Neurology Psychiatry
PROC: GZB4ZZZ Other Electroconvulsive Therapy (ICD-10-PCS; principal; 2018-07-12 07:30)
DX: F33.2 Major depressive disorder, recurrent severe without psychotic features (principal)
CPT/HCPCS: 90870; 94760

== ENCOUNTER 2018-07-15 05:44 | Day surgery (SDC) | payer OTHER ==
[2018-07-08 15:00] VITALS: BMI 23.2
[2018-07-15] MEDS ORDERED: KETAMINE HCL 500 MG/10 ML VIAL ONE (07:38)
[2018-07-15] MEDS ORDERED: ACETAMINOPHEN 325 MG TABLET (FP) PO PRN (08:39)
[2018-07-15] MEDS ORDERED: ONDANSETRON 4 MG/2 ML VIAL IVPUSH PRN (08:39)
[2018-07-15 08:46] VITALS: TEMP 98.5
[2018-07-15 09:08] VITALS: BP 121/59; PULSE 58
== END 2018-07-15 09:25 | disposition home or self-care (01) ==
LOC: FECT 05:44
PROVIDERS: ATTEND Psychiatry & Neurology Psychiatry
PROC: GZB4ZZZ Other Electroconvulsive Therapy (ICD-10-PCS; principal; 2018-07-15 07:45)
DX: F33.2 Major depressive disorder, recurrent severe without psychotic features (principal)
CPT/HCPCS: 90870; 94760

== ENCOUNTER 2018-07-18 05:55 | Day surgery (SDC) | payer OTHER ==
[2018-07-18 07:51] VITALS: TEMP 98.7; BMI 23.2
[2018-07-18] MEDS ORDERED: KETAMINE HCL 500 MG/10 ML VIAL ONE (08:19)
[2018-07-18] MEDS ORDERED: KETOROLAC TROMETHAMINE 30 MG/1 ML VIAL ONE (08:21)
[2018-07-18 10:01] VITALS: BP 124/62; PULSE 64
== END 2018-07-18 10:05 | disposition home or self-care (01) ==
LOC: FECT 05:55
PROVIDERS: ATTEND Psychiatry & Neurology Psychiatry
PROC: GZB4ZZZ Other Electroconvulsive Therapy (ICD-10-PCS; principal; 2018-07-18 08:45)
DX: F33.2 Major depressive disorder, recurrent severe without psychotic features (principal)
CPT/HCPCS: 90870; 94760

== ENCOUNTER 2018-07-21 05:50 | Day surgery (SDC) | payer OTHER ==
[2018-07-21 06:41] VITALS: BMI 23.2
[2018-07-21] MEDS ORDERED: KETAMINE HCL 500 MG/10 ML VIAL ONE (07:16)
[2018-07-21 08:20] VITALS: PULSE 58; TEMP 98.4
[2018-07-21 09:12] VITALS: BP 123/65
== END 2018-07-21 09:05 | disposition home or self-care (01) ==
LOC: FECT 05:50
PROVIDERS: ATTEND Psychiatry & Neurology Psychiatry
PROC: GZB4ZZZ Other Electroconvulsive Therapy (ICD-10-PCS; principal; 2018-07-21 08:15)
DX: F33.2 Major depressive disorder, recurrent severe without psychotic features (principal)
CPT/HCPCS: 90870; 94760

== ENCOUNTER 2018-07-28 05:54 | Day surgery (SDC) | payer OTHER ==
[2018-07-28 06:44] VITALS: BMI 23.2
[2018-07-28] MEDS ORDERED: KETAMINE HCL 500 MG/10 ML VIAL ONE (07:26)
[2018-07-28 08:37] VITALS: TEMP 98.2
[2018-07-28 09:15] VITALS: BP 114/72; PULSE 56
== END 2018-07-28 09:18 | disposition home or self-care (01) ==
LOC: FECT 05:54
PROVIDERS: ATTEND Psychiatry & Neurology Psychiatry
PROC: GZB4ZZZ Other Electroconvulsive Therapy (ICD-10-PCS; principal; 2018-07-28 08:00)
DX: F33.2 Major depressive disorder, recurrent severe without psychotic features (principal)
CPT/HCPCS: 90870; 94760

== ENCOUNTER 2018-08-03 05:47 | Day surgery (SDC) | payer OTHER ==
[2018-08-03 06:39] VITALS: BMI 23.3
[2018-08-03] MEDS ORDERED: KETAMINE HCL SYRINGES 150 MG/3 ML VIAL ONE (07:00)
[2018-08-03 08:28] VITALS: TEMP 98.6
[2018-08-03 08:39] VITALS: BP 125/86; PULSE 62
== END 2018-08-03 09:00 | disposition home or self-care (01) ==
LOC: FECT 05:47
PROVIDERS: ATTEND Psychiatry & Neurology Psychiatry
PROC: GZB4ZZZ Other Electroconvulsive Therapy (ICD-10-PCS; principal; 2018-08-03 07:30)
DX: F32.9 Major depressive disorder, single episode, unspecified (principal)
CPT/HCPCS: 90870; 94760

== ENCOUNTER 2018-08-11 05:43 | Day surgery (SDC) | payer OTHER ==
[2018-08-03 16:32] VITALS: BMI 23.3
[2018-08-11] MEDS ORDERED: ONDANSETRON 4 MG/2 ML VIAL IVPUSH PRN (07:05)
[2018-08-11] MEDS ORDERED: LACTATED RINGERS SOLUTION 1,000 ML IV SCH (07:15)
[2018-08-11] MEDS ORDERED: KETAMINE HCL SYRINGES 150 MG/3 ML VIAL ONE (07:18)
[2018-08-11 09:11] VITALS: TEMP 98.4
[2018-08-11 09:12] VITALS: BP 140/72; PULSE 67
--- NOTE | 2018-08-11 18:38 | HP ---
CHIEF COMPLAINT: Major Depressive Disorder PCP: [facility] Primary psych: Charlie Brantley HISTORY OF PRESENT ILLNESS: 52 year-old female with a PMH significant for HLD and major depressive disorder. Patient has been undergoing ECT since 2017. She presents today for ECT. 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 Smoking: never Alcohol: occasional Drugs: no Allergies No Known Allergies Allergy (Verified 07/25/18 07:12) HOME MEDICATIONS: Home Medications Medication Instructions Recorded Atorvastatin Calcium [Lipitor] 10 mg PO DAILY 02/05/17 Lamotrigine [Lamictal] 200 mg PO DAILY 02/05/17 Zolpidem Tartrate [Ambien] 10 mg PO HS 02/05/17 Ethinyl Estradiol/Drospirenone 1 each PO DAILY 02/10/17 [Loryna 3 mg-0.02 mg Tablet] Vortioxetine Hydrobromide 40 mg PO DAILY 05/23/18 [Trintellix] Clonazepam [Klonopin] 1 mg PO HS PRN 06/13/18 Multivitamin [One-Daily 1 each PO DAILY 07/21/18 Multi-Vitamin] REVIEW OF SYSTEMS CONSTITUTIONAL: Absent: fever, chills, diaphoresis, generalized weakness, malaise, loss of appetite, weight change HEENT: Absent: rhinorrhea, nasal congestion, throat pain, throat swelling, difficulty swallowing, mouth swelling, ear pain, eye pain, visual changes CARDIOVASCULAR: Absent: chest pain, syncope, palpitations, irregular heart rate, lightheadedness , peripheral edema RESPIRATORY: Absent: cough, shortness of breath, dyspnea with exertion, orthopnea, wheezing, stridor, hemoptysis GASTROINTESTINAL: Absent: abdominal pain, abdominal distension, nausea, vomiting, diarrhea, constipation, melena, hematochezia GENITOURINARY: Absent: dysuria, frequency, urgency, hesitancy, hematuria, flank pain, genital pain MUSCULOSKELETAL: Absent: myalgia, arthralgia, joint swelling, back pain, neck pain SKIN: Absent: rash, itching, pallor HEMATOLOGIC/IMMUNOLOGIC: Absent: easy bleeding, easy bruising, lymphadenopathy, frequent infections ENDOCRINE: Absent: unexplained weight gain, unexplained weight loss, heat intolerance, cold intolerance NEUROLOGIC: Absent: headache, focal weakness or paresthesias, dizziness, unsteady gait, seizure, mental status changes, bladder or bowel incontinence PHYSICAL EXAMINATION Vital Signs - 24 hr 08/11/18 08/11/18 08/11/18 06:59 08:00 08:05 Temperature 98.3 F Pulse Rate 59 L 71 72 Respiratory 18 16 18 Rate Blood Pressure 124/80 164/78 159/73 O2 Sat by Pulse 98 100 100 Oximetry (%) 08/11/18 08/11/18 08/11/18 08:10 08:15 08:30 Temperature 98.3 F Pulse Rate 73 64 64 Respiratory 14 16 16 Rate Blood Pressure 157/63 140/67 148/71 O2 Sat by Pulse 100 100 Oximetry (%) 08/11/18 08/11/18 08/11/18 08:35 09:05 09:15 Temperature 98.4 F 98.4 F 98.4 F Pulse Rate 65 67 67 Respiratory 18 18 18 Rate Blood Pressure 147/70 140/72 140/72 O2 Sat by Pulse 98 99 Oximetry (%) GENERAL: Awake, alert, and fully oriented, in no acute distress. HEAD: Normal with no signs of trauma. EYES: Pupils equal, round and reactive to light, sclera anicteric, conjunctiva clear. LUNGS: Breath sounds equal, clear to auscultation bilaterally. No wheezes, and no crackles. No accessory muscle use. HEART: Regular rate and rhythm, normal S1 and S2 ABDOMEN: Soft, nontender, not distended MUSCULOSKELETAL: Normal range of motion at all joints. No bony deformities or tenderness. No CVA tenderness. UPPER EXTREMITIES: 2+ pulses, warm, well-perfused. No cyanosis. No clubbing. No peripheral edema. LOWER EXTREMITIES: 2+ pulses, warm, well-perfused. No calf tenderness. No peripheral edema. NEUROLOGICAL: Cranial nerves II-XII intact. Normal speech. ASSESSMENT/PLAN: 52 year-old female with a PMH significant for HLD and major depressive disorder. Presents today for ECT. Cardiac --no cardiac history --Revised Cardiac Risk Index for Pre-Operative Risk: 0 points, 0.4% risk of major cardiac event Pulmonary --no pulmonary history Neurological --no neurological or neurosurgical history; no history of trauma Anesthesia --no reported previous problems with anesthesia ECT is a low risk procedure. The relative benefits of the planned procedure outweigh the relative risks for this patient at this time. Visit type - Emergency Visit Emergency Visit: No - New Patient This patient is new to me today: Yes Date on this admission: 08/17/18 - Critical Care Critical Care patient: No
== END 2018-08-11 09:15 | disposition home or self-care (01) ==
LOC: FECT 05:43
PROVIDERS: ATTEND Psychiatry & Neurology Psychiatry
PROC: GZB4ZZZ Other Electroconvulsive Therapy (ICD-10-PCS; principal; 2018-08-11 07:30)
DX: F33.2 Major depressive disorder, recurrent severe without psychotic features (principal)
CPT/HCPCS: 90870; 94760

== ENCOUNTER 2018-08-15 05:54 | Day surgery (SDC) | payer OTHER ==
[2018-08-15 06:42] VITALS: TEMP 98; BMI 23.3
[2018-08-15] MEDS ORDERED: KETAMINE HCL 500 MG/10 ML VIAL ONE (07:06)
[2018-08-15 08:37] VITALS: BP 127/71; PULSE 56
== END 2018-08-15 08:50 | disposition home or self-care (01) ==
LOC: FECT 05:54
PROVIDERS: ATTEND Psychiatry & Neurology Psychiatry
PROC: GZB4ZZZ Other Electroconvulsive Therapy (ICD-10-PCS; principal; 2018-08-15 08:45)
DX: F33.2 Major depressive disorder, recurrent severe without psychotic features (principal)
CPT/HCPCS: 90870; 94760

== ENCOUNTER 2018-08-18 05:49 | Day surgery (SDC) | payer OTHER ==
[2018-08-12 17:25] VITALS: BMI 23.3
[2018-08-18] MEDS ORDERED: KETAMINE HCL SYRINGES 150 MG/3 ML VIAL ONE (07:32)
[2018-08-18 08:48] VITALS: TEMP 98.1
[2018-08-18 09:37] VITALS: BP 133/68; PULSE 66
== END 2018-08-18 09:15 | disposition home or self-care (01) ==
LOC: FECT 05:49
PROVIDERS: ATTEND Psychiatry & Neurology Psychiatry
PROC: GZB4ZZZ Other Electroconvulsive Therapy (ICD-10-PCS; principal; 2018-08-18 07:45)
DX: F33.2 Major depressive disorder, recurrent severe without psychotic features (principal)
CPT/HCPCS: 90870; 94760

== ENCOUNTER 2018-08-24 05:45 | Day surgery (SDC) | payer OTHER ==
[2018-08-22 07:57] VITALS: BMI 23.3
[2018-08-24 06:53] VITALS: TEMP 98.1
[2018-08-24] MEDS ORDERED: KETAMINE HCL SYRINGES 150 MG/3 ML ONE (07:09)
[2018-08-24 08:58] VITALS: BP 130/72; PULSE 68
[2018-08-24 08:58] LABS: BASO % 0.6 % (0-2.0); EOS % 0.9 % (0-4.5); HEMOGLOBIN 11.6 GM/dl (10.7-15.3); LYMPH % 23.5 % (8-40); MCH 28.8 pg (25.7-33.7); MCHC 32.4 g/dl (32.0-36.0); MEAN CELL VOLUME 89.1 fl (80-96); MEAN PLT VOLUME 6.4 fl (7.5-11.1); MONO % 6.9 % (3.8-10.2); NEUT % 68.1 % (42.8-82.8); PLATELET COUNT 397 K/MM3 (134-434); RBC 4.04 M/mm3 (3.60-5.2); RDW 12.4 % (11.6-15.6); WHITE BLOOD COUNT 6.7 K/mm3 (4.0-10.8)
[2018-08-24 09:14] LABS: ALK PHOS 49 U/L (45-117); ANION GAP 6 MMOL/L (8-16); BILIRUBIN,TOTAL 0.4 mg/dl (0.2-1); BLOOD UREA NITROGEN 16 mg/dl (7-18); CALCIUM 8.8 mg/dl (8.5-10); CHLORIDE 97 mmol/L (98-107); CO2 26 mmol/L (21-32); CREATININE 0.8 mg/dl (0.55-1.3); GLUCOSE,RANDOM 94 mg/dl (74-106); MAGNESIUM 1.8 mg/dL (1.8-2.4); SGOT/AST 29 U/L (15-37); SGPT/ALT 18 U/L (13-61); SODIUM 129 mmol/L (136-145); TOT PROT 5.9 g/dl (6.4-8.2)
--- NOTE | 2018-08-24 14:54 | EKG ---
Test Reason : Blood Pressure : / mmHG Vent. Rate : 068 BPM Atrial Rate : 068 BPM P-R Int : 102 ms QRS Dur : 074 ms QT Int : 422 ms P-R-T Axes : 050 020 047 degrees QTc Int : 448 ms SINUS RHYTHM WITH SHORT WY OTHERWISE NORMAL ECG WHEN COMPARED WITH ECG OF 24-FEB-2018 09:09, NO SIGNIFICANT CHANGE WAS FOUND Confirmed by ANH STRINGER MD ([id number]) on 08/24/2018 2:54:08 PM Referred By: Partha Chandler Confirmed By:ANH STRINGER MD
== END 2018-08-24 09:00 | disposition home or self-care (01) ==
LOC: FECT 05:45
PROVIDERS: ATTEND Psychiatry & Neurology Psychiatry
PROC: GZB4ZZZ Other Electroconvulsive Therapy (ICD-10-PCS; principal; 2018-08-24 07:15)
DX: F32.9 Major depressive disorder, single episode, unspecified (principal)
CPT/HCPCS: 36415; 80053; 83735; 85025; 90870; 93005; 94760

== ENCOUNTER 2018-08-31 05:38 | Day surgery (SDC) | payer OTHER ==
[2018-08-24 17:16] VITALS: BMI 23.3
[2018-08-31] MEDS ORDERED: KETAMINE HCL SYRINGES 150 MG/3 ML ONE (07:22)
[2018-08-31] MEDS ORDERED: PROMETHAZINE HCL 25 MG/1 ML VIAL IVPUSH PRN (07:56)
[2018-08-31] MEDS ORDERED: ACETAMINOPHEN 325 MG TABLET (FP) PO PRN (07:56)
[2018-08-31] MEDS ORDERED: LACTATED RINGERS SOLUTION 1,000 ML IV SCH (08:00)
[2018-08-31 08:33] VITALS: TEMP 98.5
[2018-08-31 09:15] VITALS: BP 137/73; PULSE 60
== END 2018-08-31 09:18 | disposition home or self-care (01) ==
LOC: FECT 05:38
PROVIDERS: ATTEND Psychiatry & Neurology Psychiatry
PROC: GZB4ZZZ Other Electroconvulsive Therapy (ICD-10-PCS; principal; 2018-08-31 07:00)
DX: F33.2 Major depressive disorder, recurrent severe without psychotic features (principal)
CPT/HCPCS: 90870; 94760